=== PATIENT | male | born 1940 | race Caucasian/White ===

== ENCOUNTER → 2021-09-24 | Outpatient (CLI) | payer MEDICARE, SELFPAY ==
[2021-09-24 10:35] LABS: Hematocrit 44.9 % (40-54); Mean Corp Hgb Conc 33.4 g/dL (32-36); Mean Corpuscular Hgb 29.7 pg (27.0-32.0); Mean Corpuscular Volume 88.9 fL (80-94); Mean Platelet Vol. 9.5 fl (6.2-12.0); Platelet Count 285 K/mm3 (150-450); RBC Distribution Width SD 42.6 fl (35.1-43.9); Red Blood Count 5.05 M/mm3 (4.6-6.2)
[2021-09-24 11:32] LABS: Anion Gap 8 (5-15); BUN 18 mg/dL (7-18); BUN/Creat Ratio 15.7 RATIO (10-20); Chloride 100 mmol/L (98-107); Cholesterol 293 mg/dL (200); Creatinine, Serum 1.15 mg/dL (0.70-1.30); EST Glomerular Filtration Rate 65 mL/min (>60); Est Glom Filt Rate - Afr Amer 79 mL/min (>60); Glucose 199 mg/dL (74-106); High Density Lipoprotein 45 mg/dL; Sodium Level 135 mmol/L (136-145); Triglycerides 219 mg/dL; Very Low Density Lipoprotein 44 mg/dL (5-40)
== END | disposition home or self-care (01) ==
PROVIDERS: PCP Family Medicine; Referring Provider Family Medicine; Visit Provider Family Medicine
DX: R73.01 Impaired fasting glucose (principal); T14.8XXA Other injury of unspecified body region, initial encounter; Z13.220 Encounter for screening for lipoid disorders
CPT/HCPCS: 36415; 80048; 80061; 85027

== ENCOUNTER → 2021-11-02 | Outpatient (CLI) | payer MEDICARE, SELFPAY ==
--- NOTE | 2021-11-02 12:00 | TISS_PTH ---
PATIENT: KASSANDRA AKINS LOC: [facility] U#:[id number] AGE/SX: 81/M ROOM: RE11/02/[address]: Dr. Gene Swain MD : [id number] BED: DIS: 11/02/2021 SPEC #: [id number] RECD: 11/02/21 14:55 STATUS: VIJAY CABEZAS #: [id number] MARIA SUBM DR: Gene Swain DEPT: SURGICAL PATHOLOGY RECD BY: Ga Thompson ENTERED: 11/03/21 08:00 SP TYPE: Tissue Bx ANDREW DR: Dr. Nayely Galeas MD Tissues: Skin of upper extremity and shoulder Procedures: Surgery Specimen Level IV HEADER OPERATION: Shave biopsy PRE-OP DIAGNOSIS: ? SCC TISSUE SUBMITTED: Posterior left shoulder MICROSCOPIC DIAGNOSIS Posterior left shoulder lesion, shave biopsy: Seborrheic keratosis. Negative for malignancy. See comment. SJ:aarti 11/04/2021 COMMENT Clinical correlation and appropriate follow up are necessary. MICROSCOPIC DESCRIPTION Slides are reviewed. GROSS DESCRIPTION Received is one container labeled with the patient's name and not further designated. The specimen consists of a piece of blair-brown skin measuring 1.5 x 1.4 cm and up to 0.2 cm in thickness. The specimen is inked, serially sectioned and submitted entirely in one cassette. / APRIL:aarti 11/03/2021 TC:1 CPT: 47793
== END | disposition home or self-care (01) ==
LOC: LABSPEC 15:10
PROVIDERS: PCP Family Medicine; Referring Provider Family Medicine; Visit Provider Family Medicine
DX: M75.82 Other shoulder lesions, left shoulder (principal); L82.1 Other seborrheic keratosis
CPT/HCPCS: 88305

== ENCOUNTER 2021-11-15 10:01 | Emergency (ER) | payer MEDICARE, SELFPAY ==
[2021-11-15 10:02] VITALS: BP 227/112; PULSE 87; RESP 16; TEMP 36.9; O2SAT 96; BMI 34.4
--- NOTE | 2021-11-15 10:26 | EKG12_ITS ---
Test Reason : BLOOD PRESSURE Blood Pressure : / mmHG Vent. Rate : 071 BPM Atrial Rate : 071 BPM P-R Int : 194 ms QRS Dur : 080 ms QT Int : 396 ms P-R-T Axes : 028 -24 043 degrees QTc Int : 430 ms Normal sinus rhythm Minimal voltage criteria for LVH, may be normal variant ( R in aVL ) Borderline ECG Confirmed by TYE CASTAÑEDA, ZACHARY ([id number]), medical transcription editor BILL GALLAGHER ([id number]) on 11/17/2021 9:21:52 AM Referred By: Confirmed By:ZACHARY GAMBLE MD
[2021-11-15 11:00] VITALS: BP 213/110; PULSE 74
[2021-11-15 11:03] LABS: Bacteria 0 SEEN /hpf (None Seen); Mucous, Urine 0 SEEN /hpf (<or=2+); Red Blood Cells-Urine 0 SEEN /hpf (0-5); Squamous Epithelial Cells - UA 0 SEEN /hpf (0-5); White Blood Cells 0 SEEN /hpf (0-5)
[2021-11-15 11:06] LABS: Color, Urine Yellow (Yellow); Glucose, Dipstick Normal (Normal); Ketone-Dipstick Negative (Negative); Leukocyte Esterase-Dipstick Negative /ul (Negative); Nitrite-Dipstick Negative (Negative); Occult Blood-Urine Negative /ul (Negative); Protein-Dipstick Negative (Negative); Urine Bilirubin Dipstick Negative (Negative); Urine Clarity Clear (Clear); Urine Urobilinogen Normal (Normal)
[2021-11-15 11:10] LABS: Anion Gap 6 (5-15); BUN 17 mg/dL (7-18); Chloride 103 mmol/L (98-107); EST Glomerular Filtration Rate 76 mL/min (>60); Est Glom Filt Rate - Afr Amer 92 mL/min (>60); Estimated Creatinine Clearance 53.17 ml/min; Glucose 178 mg/dL (74-106); Potassium 4.1 mmol/L (3.5-5.1); Sodium Level 138 mmol/L (136-145)
--- NOTE | 2021-11-15 11:49 | EX.ED.DYSGE1 ---
HPI History of Present Illness Chief Complaint: Hypertension Detail of Chief Complaint: Elevated blood pressure of 220/160 Informant: patient and family Onset/Context/Timing Onset: - (Unknown. Patient's blood pressure has not been checked recently.) Context: - (Unknown) Timing: - (Unknown) Quality: Patient is asymptomatic Location: Not applicable Current Severity: Moderate Maximum Severity: Moderate Worsened by: Nothing Relieved by: Nothing Associated Symptoms Associated Symptoms: None Narrative Narrative: Patient is an elderly gentleman who was sent from urgent care because of a low blood pressure. He denies headache, visual, ocular auditory symptoms. He specifically denies blurred vision, change in vision or double vision. He denies partial or complete loss of vision. He denies neck pain. He denies chest pain, back pain. He denies respiratory symptoms. He denies nausea or vomiting. He denies decreased urine output. He denies paresthesia, anesthesia or motor weakness. He denies problems with coordination or balance. He denies difficulty with speech or swallowing. He discontinued his blood pressure medicine. Prior similar symptoms: No Recent Illness/Hospitalization: No [facility] Medical History Diabetes Hypertension Home Medications hydrochlorothiazide 25 mg tablet 25 mg PO DAILY 08/11/13 [History Last Taken Unknown] hydrocodone-acetaminophen 5-325mg 5mg-325mg 1 tab PO Q6H PRN PRN Pain ##20 08/11/13 [Rx Last Taken Unknown] lisinopril 20 mg tablet 20 mg PO BID 08/11/13 [History Last Taken Unknown] multivitamin,pn-qwnt-zkmxaewa 27 mg-0.4 mg tablet (Therems-M) 1 tab PO DAILY 08/11/13 [History Last Taken Unknown] lisinopril 10 mg tablet 10 mg PO DAILY #30 tabs 11/15/21 [Rx Last Taken Unknown] Allergy/AdvReac Type Severity Reaction Status Date / Time codeine Allergy Mild Hives Verified 11/15/21 10:06 Surgical History History of tonsillectomy and adenoidectomy Social History (Updated 11/15/21 @ 11:[address] Anthony Chavez MD) household members: none Smoking Status: Never smoker substance use type: does not use ROS ROS ED Constitutional Constitutional ED: Denies chills, fever(s), subjective, sweats or weight loss Eyes Eyes: Denies blurry vision, change in vision or diplopia ENT ENT ED: Denies ear pain, rhinorrhea or sore throat Cardiovascular Cardiovascular: Denies chest pain, orthopnea, palpitations, paroxysmal nocturnal dyspnea or racing heartbeat Respiratory/Chest Respiratory/Chest: Denies cough, dyspnea, dyspnea on exertion, orthopnea or paroxysmal nocturnal dyspnea Gastrointestinal Gastrointestinal: Denies abdominal pain, constipation, diarrhea, melena, nausea or vomiting Genitourinary Genitourinary ED: Denies dysuria, hematuria or urinary frequency Musculoskeletal Musculoskeletal: Denies arthralgias, back pain, myalgias or neck pain Integumentary Denies Abrasions or rash Neurologic Neurologic: Denies headache(s), paresthesias or weakness Endocrine Endocrinology: Denies cold intolerance, heat intolerance, polydipsia, polyphagia or polyuria Hematologic/Lymphatic Hematologic/Lymphatic: Reports systems reviewed and no addt'l complaints, except as documented and none EXAM Physical Exam Const Vital Signs: 11/15/21 10:02 11/15/21 10:06 Temperature 98.4 F Temperature Source Oral Pulse Rate 87 Respiratory Rate 16 Respiratory Pattern Normal Blood Pressure 227/112 H Blood Pressure Mean 150 Pulse Ox 96 Oxygen Delivery Method Room Air Positive well nourished, well developed and obese General Appearance ED: well developed and NAD; Negative for cyanotic, diaphoretic or pallor Nutritional Appearance: obese HEENT Denies moist mucous membranes HEENT Narrative: Head is normocephalic atraumatic. Ears normal. Nares patent. Uvula midline. No deviation or protrusion. There is no erythema or exudate the posterior pharynx Eyes PERRL and EOMs intact bilaterally Eyes Narrative: Unable to see fundi. General Eye ED: Negative for pale conjunctiva or scleral icterus Neck no lymphadenopathy, supple and no JVD Chest Wall inspection of chest normal and palpation of chest normal Resp normal respiratory effort and clear to auscultation bilaterally Cardio regular rate, regular rhythm, S1 normal heart sound, S2 normal heart sound and no murmurs GI normal to inspection, nondistended, normoactive bowel sounds, non-tender, non-distended and no masses; Negative for hepatosplenomegaly Palpation: soft Back/Spine no CVA tenderness Cervical Spine: Negative for cervical spine tenderness Thoracic Spine / Upper Back: Negative for thoracic spinal tenderness Lumbar Spine / Lower Back: Negative for lumbar spinal tenderness Extremity normal to inspection General Extremety ED: Negative for tenderness Neuro oriented x3, CN's II-XII intact bilaterally and no sensory deficits noted Neuro Narrative: Negative Babinski and negative for clonus. Sensorium / Orientation: alert Motor Exam: strength 5/5 throughout Psych mental status grossly normal Skin no rashes or lesions noted and no wounds General Skin Exam: Negative for jaundice or pallor MDM MDM MDM Narrative Medical decision making narrative: Patient with asymptomatic hypertension. Will obtain appropriate blood work to assess for endorgan dysfunction. Suspect this is due to patient discontinuing his antihypertensive medication. Since patient has no evidence of endorgan injury and is asymptomatic we will resume his lisinopril. He was started on 10 mg. He and his family were instructed to contact Dr. Calhoun's office for blood pressure check in 1 week. Lab Data Attestation: I reviewed the patient's lab results. Lab results narrative: Basic metabolic panel is unremarkable. There is no evidence of endorgan dysfunction. His blood sugar is elevated 178. Review of past records indicates that patient does have 2 diabetes. UA is negative for blood and protein there are no casts noted on microscopic exam. Labs: Laboratory Results - last 24 hr 11/15/21 11/15/21 10:45 10:55 Sodium 138 Potassium 4.1 Chloride 103 Carbon Dioxide 29.0 Anion Gap 6 BUN 17 Creatinine 1.00 Estim Creat Clear Calc 53.17 Est GFR (MDRD) Af Amer 92 Est GFR (MDRD) Non-Af 76 BUN/Creatinine Ratio 17.0 Glucose 178 H Calcium 9.0 Urine Color Yellow Urine Clarity Clear Urine pH 7.0 Ur Specific [place] 1.010 Urine Protein Negative Urine Glucose (UA) Normal Urine Ketones Negative Urine Occult Blood Negative Urine Nitrite Negative Urine Bilirubin Negative Urine Urobilinogen Normal Ur Leukocyte Esterase Negative Urine RBC 0 SEEN Urine WBC 0 SEEN Ur Squamous Epith Cells 0 SEEN Urine Bacteria 0 SEEN Urine Mucus 0 SEEN Discharge Plan Triage Chief Complaint: Hypertension ED Provider: Anthony Chavez Dx/Rx/DC Orders Clinical Impression: Asymptomatic hypertensive urgency Instructions: ED Hypertension, Established Prescriptions: New lisinopril 10 mg tablet 10 mg PO DAILY Qty: 30 0RF No Action lisinopril 20 MG tablet 20 mg PO BID hydrochlorothiazide 25 MG tablet 25 mg PO DAILY multivitamin,ux-hydh-vhvwsmon [Therems-M] 1 TABLET tablet 1 tab PO DAILY hydrocodone-acetaminophen 1 TABLET tablet 1 tab PO Q6H PRN PRN (Reason: Pain) Qty: 20 0RF Primary Care Provider: Dariel Swain Referrals: Dariel Swain MD [Primary Care Provider] - 1 Week Activity Restrictions/Additional Instructions: 1. If you develop chest pain that radiates to your back, have strokelike symptoms, become abruptly short of breath called 911 2. Take lisinopril daily as prescribed. 3. Contact Dr. Calhoun's office today to be seen in a week for blood pressure reassessment Disposition Disposition: Home, Self Care
[2021-11-15 12:00] VITALS: BP 217/108; PULSE 69
[2021-11-15 12:23] VITALS: BP 209/102; PULSE 71; RESP 14; O2SAT 96
[2021-11-15] MEDS: Lisinopril 10 MG Tablet PO (12:23)
== END 2021-11-15 12:30 | disposition home or self-care (01) ==
PROVIDERS: Emergency Provider Emergency Medicine; PCP Family Medicine; Visit Provider Emergency Medicine
DX: I16.0 Hypertensive urgency (principal); E11.9 Type 2 diabetes mellitus without complications; I95.9 Hypotension, unspecified; I10 Essential (primary) hypertension
CPT/HCPCS: 80048; 81001; 93005; 99285; A4216

== ENCOUNTER 2021-12-21 13:00 | Outpatient (RCR) | payer MEDICARE, SELFPAY | END 2022-01-12 23:59 | LOC: DC 13:00 | PROVIDERS: PCP Family Medicine; Referring Provider Family Medicine; Visit Provider Family Medicine | DX: E11.9 Type 2 diabetes mellitus without complications (principal) | CPT/HCPCS: 97802; G0108 ==

== ENCOUNTER 2022-01-04 04:37 | Emergency (ER) | payer MEDICARE, SELFPAY ==
[2022-01-04 04:39] VITALS: BP 164/98; PULSE 82; RESP 18; TEMP 36.7; O2SAT 96; BMI 34.4
--- NOTE | 2022-01-04 04:57 | EDS_ITS ---
HPI History of Present Illness Chief Complaint: Cold Sx Informant: patient Narrative Narrative: Patient comes in with nasal congestion drainage and sore throat. This has been going on a little bit for the past week. But it increased on Monday. He thought he might of had a fever at home which is what brought him to the emergency department. He has had problems with sinus infections and has seen ENT in the past. He states he had a little bit of a cough but it is rare and he thinks is just due to the sinus drainage. He is not at all short of breath. He can lay down flat without difficulty. He is not bringing up sputum. No muscle aches. No nausea vomiting. He does not feel systemically ill. He is still eating and drinking and carrying on his normal daily activities. Nothing really makes this better or worse. [facility] Medical History Diabetes Hypertension Home Medications hydrochlorothiazide 25 mg tablet 25 mg PO DAILY 08/11/13 [History Last Taken Unknown] hydrocodone-acetaminophen 5-325mg 5mg-325mg 1 tab PO Q6H PRN PRN Pain ##20 08/11/13 [Rx Last Taken Unknown] lisinopril 20 mg tablet 20 mg PO BID 08/11/13 [History Last Taken Unknown] multivitamin,bq-iqqq-uslmlttb 27 mg-0.4 mg tablet (Therems-M) 1 tab PO DAILY 08/11/13 [History Last Taken Unknown] lisinopril 10 mg tablet 10 mg PO DAILY #30 tabs 11/15/21 [Rx Last Taken Unknown] amoxicillin 500 mg capsule 500 mg PO TID #30 caps 01/04/22 [Rx Last Taken Unknown] Allergy/AdvReac Type Severity Reaction Status Date / Time codeine Allergy Mild Hives Verified 11/15/21 10:06 Surgical History History of tonsillectomy and adenoidectomy Social History household members: none Smoking Status: Never smoker substance use type: does not use ROS ROS ED Constitutional Constitutional ED: Reports chills and subjective Eyes Eyes: Denies blurry vision, change in vision or diplopia ENT ENT ED: Reports rhinorrhea, sore throat and other Details: See history of present illness. ; Denies ear pain Cardiovascular Cardiovascular: Denies chest pain, palpitations or racing heartbeat Respiratory/Chest Respiratory/Chest: Reports cough; Denies dyspnea or dyspnea on exertion Gastrointestinal Gastrointestinal: Denies abdominal pain, nausea or vomiting Genitourinary Genitourinary ED: Denies dysuria Musculoskeletal Musculoskeletal: Denies arthralgias or myalgias Integumentary Denies rash Neurologic Neurologic: Denies headache(s) Endocrine Endocrinology: Denies polydipsia or polyuria Hematologic/Lymphatic Hematologic/Lymphatic: Denies easy bleeding or easy bruising Allergic/Immunologic Allergic/Immunologic ED: Denies urticaria EXAM Physical Exam Const Vital Signs: 01/04/22 04:39 01/04/22 04:39 Temperature 98.1 F Temperature Source Oral Pulse Rate 82 Respiratory Rate 18 Respiratory Effort Normal Respiratory Pattern Normal Blood Pressure 164/98 H Blood Pressure Mean 120 Pulse Ox 96 Oxygen Delivery Method Room Air Positive well nourished and well developed Constitutional Narrative: Patient looks nontoxic. He walked back from triage without any difficulties. He is not at all dyspneic. General Appearance ED: well developed and NAD; Negative for pallor HEENT Reports moist mucous membranes HEENT Narrative: Patient does have a little bit of tenderness to the right frontal and mild to the right maxillary area. No temporal artery tenderness. No left-sided tenderness. He does have some nasal discharge slightly more on the right than the left. It is not grossly purulent though. No bleeding. Posterior pharynx shows some minimal erythema but no exudate swelling or asymmetry. His voice is normal. Eyes EOMs intact bilaterally Neck supple Chest Wall inspection of chest normal Resp normal respiratory effort and clear to auscultation bilaterally Resp Narrative: Patient takes good deep breaths without any pain. His lungs are completely cl ear. No coughing while I am in the room. No wheezes rales or rhonchi Auscultation: Negative for rales, rhonchi or wheezes Cardio regular rate and regular rhythm GI normal to inspection, nondistended, normoactive bowel sounds and non-tender Back/Spine no CVA tenderness Extremity General Extremety ED: Negative for tenderness Neuro oriented x3 Psych mental status grossly normal Skin no rashes or lesions noted General Skin Exam: Negative for jaundice or pallor MDM MDM MDM Narrative Medical decision making narrative: This patient has a long history of sinus issues. He states its uncommon when he gets a sinus infection but he has had several before. This is similar. He is approaching about a week of congestion and drainage from his nose. What brought him in now was concerned of possible fever at home. Were not seeing a fever here. He has a rare dry cough that is probably postnasal drip. His chest x-ray is looked at by me and read by radiology as clear. With the reported fever, drainage, isolated facial tenderness and pain I will treat this as a case of sinusitis. There is no real significant pulmonary's symptom other than a rare dry cough. There is no infiltrate or change on chest x-ray. No fever. No hypoxia. COVID is negative. Patient has had prior sinus infections. He has drainage tenderness and reported fever at home. Radiography Diagnostic Testing: Clinical Impression(s) from Imaging Studies Chest X-Ray 01/04/22 04:57 IMPRESSION: No acute cardiopulmonary disease. Moderate hiatal hernia. Electronically Signed: Toño Haywood MD at 6:03 EST , Chest x-ray looked at by me and read by radiology shows no acute process. Discharge Plan Triage Chief Complaint: Cold Sx ED Provider: Crow Foreman Dx/Rx/DC Orders Clinical Impression: Sinusitis, acute Instructions: ED Sinusitis (Antibiotic Treatment) Prescriptions: New amoxicillin 500 mg capsule 500 mg PO TID Qty: 30 0RF No Action lisinopril 20 MG tablet 20 mg PO BID hydrochlorothiazide 25 MG tablet 25 mg PO DAILY multivitamin,lu-ekdr-mbgyxeqx [Therems-M] 1 TABLET tablet 1 tab PO DAILY hydrocodone-acetaminophen 1 TABLET tablet 1 tab PO Q6H PRN PRN (Reason: Pain) Qty: 20 0RF lisinopril 10 mg tablet 10 mg PO DAILY Qty: 30 0RF Primary Care Provider: Dariel Swain Referrals: Dariel Swain MD [Primary Care Provider] - 1 Week if not improving Disposition Disposition: Home, Self Care
--- NOTE | 2022-01-04 04:57 | RAD_ITS ---
INDICATION: cough EXAMINATION/TECHNIQUE: X-RAY - XR Chest 2 Views COMPARISON: 08/11/2013 FINDINGS: LINES/DEVICES: None. LUNGS: No consolidation, edema or effusion. No pneumothorax. MEDIASTINUM AND CARDIOVASCULAR STRUCTURES: Atherosclerotic calcifications. Moderate hiatal hernia with air-fluid level. BONES AND SOFT TISSUES: Unremarkable. RAD/Chest PA and Lateral IMPRESSION: No acute cardiopulmonary disease. Moderate hiatal hernia. Electronically Signed: Toño Haywood MD at 6:03 EST ,
== END 2022-01-04 06:29 | disposition home or self-care (01) ==
PROVIDERS: Emergency Provider Emergency Medicine; PCP Family Medicine; Visit Provider Emergency Medicine
DX: J01.90 Acute sinusitis, unspecified (principal); E11.9 Type 2 diabetes mellitus without complications; J02.9 Acute pharyngitis, unspecified; I10 Essential (primary) hypertension
CPT/HCPCS: 71046; 87811; 99282

== ENCOUNTER → 2022-03-24 | Outpatient (CLI) | payer MEDICARE, SELFPAY ==
[2022-03-24 11:20] LABS: Anion Gap 8 (5-15); BUN 19 mg/dL (7-18); BUN/Creat Ratio 17.4 RATIO (10-20); Calcium,Total 9.5 mg/dL (8.5-10.1); Chloride 100 mmol/L (98-107); Cholesterol 320 mg/dL (200); Creatinine, Serum 1.09 mg/dL (0.70-1.30); EST Glomerular Filtration Rate 69 mL/min (>60); Est Glom Filt Rate - Afr Amer 84 mL/min (>60); Glucose 150 mg/dL (74-106); High Density Lipoprotein 55 mg/dL; Potassium 4.3 mmol/L (3.5-5.1); Sodium Level 136 mmol/L (136-145); Triglycerides 181 mg/dL; Very Low Density Lipoprotein 36 mg/dL (5-40)
== END | disposition home or self-care (01) ==
LOC: MTLAB 08:08
PROVIDERS: PCP Family Medicine; Referring Provider Family Medicine; Visit Provider Family Medicine
DX: I10 Essential (primary) hypertension (principal); E78.5 Hyperlipidemia, unspecified
CPT/HCPCS: 36415; 80048; 80061

== ENCOUNTER → 2022-06-20 | Outpatient (CLI) | payer MEDICARE, SELFPAY ==
[2022-06-20 10:36] LABS: ALB/GLOB Ratio 1.2 RATIO (0.9-2.4); AST(SGOT) 22 U/L (15-37); Alanine Aminotransfer ALT/SGPT 23 U/L (16-61); Albumin, Serum 4.1 g/dL (3.2-5.0); Alkaline Phosphatase 67 U/L (45-117); Anion Gap 6 (5-15); BUN 21 mg/dL (7-18); BUN/Creat Ratio 19.8 RATIO (10-20); Calcium,Total 9.2 mg/dL (8.5-10.1); Chloride 101 mmol/L (98-107); Cholesterol 165 mg/dL (200); Creatinine, Serum 1.06 mg/dL (0.70-1.30); EST Glomerular Filtration Rate 71 mL/min (>60); Est Glom Filt Rate - Afr Amer 86 mL/min (>60); Globulin 3.5 g/dL (2.2-4.2); Glucose 159 mg/dL (74-106); High Density Lipoprotein 46 mg/dL; Potassium 4.1 mmol/L (3.5-5.1); Protein, Total 7.6 g/dL (6.4-8.2); Sodium Level 139 mmol/L (136-145); Triglycerides 271 mg/dL; Very Low Density Lipoprotein 54 mg/dL (5-40)
== END | disposition home or self-care (01) ==
LOC: MTLAB 07:44
PROVIDERS: PCP Family Medicine; Referring Provider Family Medicine; Visit Provider Family Medicine
DX: E11.9 Type 2 diabetes mellitus without complications (principal); E78.5 Hyperlipidemia, unspecified
CPT/HCPCS: 36415; 80053; 80061

== ENCOUNTER → 2023-05-08 | Outpatient (CLI) | payer MEDICARE, SELFPAY ==
[2023-05-08 16:33] LABS: Anion Gap 8 (5-15); BUN 19 mg/dL (7-18); BUN/Creat Ratio 18.1 RATIO (10-20); Calcium,Total 9.2 mg/dL (8.5-10.1); Chloride 104 mmol/L (98-107); Cholesterol 257 mg/dL (200); Creatinine, Serum 1.05 mg/dL (0.70-1.30); EST Glomerular Filtration Rate 72 mL/min (>60); Est Glom Filt Rate - Afr Amer 87 mL/min (>60); Glucose 150 mg/dL (74-106); High Density Lipoprotein 47 mg/dL; Potassium 3.6 mmol/L (3.5-5.1); Sodium Level 137 mmol/L (136-145); Triglycerides 178 mg/dL; Very Low Density Lipoprotein 36 mg/dL (5-40)
== END | disposition home or self-care (01) ==
LOC: MFPLAB 13:53
PROVIDERS: PCP Family Medicine; Visit Provider Family Medicine
DX: E11.65 Type 2 diabetes mellitus with hyperglycemia (principal)
CPT/HCPCS: 36415; 80048; 80061; 84443

== ENCOUNTER → 2023-08-07 | Outpatient (CLI) | payer MEDICARE, SELFPAY | END | disposition home or self-care (01) | LOC: MFPLAB 13:48 | PROVIDERS: PCP Family Medicine; Visit Provider Family Medicine | DX: E03.9 Hypothyroidism, unspecified (principal); E78.5 Hyperlipidemia, unspecified | CPT/HCPCS: 36415; 80061; 84439; 84443 ==

== ENCOUNTER → 2023-08-14 | Outpatient (CLI) | payer MEDICARE, SELFPAY ==
[2023-08-14 15:42] LABS: Cholesterol 159 mg/dL (200); High Density Lipoprotein 42 mg/dL; T4 Free Direct 0.86 ng/dL (0.76-1.46); Triglycerides 180 mg/dL; Very Low Density Lipoprotein 36 mg/dL (5-40)
== END | disposition home or self-care (01) ==
LOC: MFPLAB 11:18
PROVIDERS: PCP Family Medicine; Visit Provider Family Medicine
DX: E78.5 Hyperlipidemia, unspecified (principal); E03.9 Hypothyroidism, unspecified
CPT/HCPCS: 80061; 84439; 84443

== ENCOUNTER 2023-09-06 19:12 | Inpatient (IN) | payer MEDICARE, SELFPAY ==
[2023-09-06 19:14] VITALS: BP 145/84; PULSE 96; RESP 22; TEMP 36.1; O2SAT 97; BMI 34.7
--- NOTE | 2023-09-06 19:25 | EKG12_ITS ---
Test Reason : REPEAT Blood Pressure : / mmHG Vent. Rate : 091 BPM Atrial Rate : 091 BPM P-R Int : 148 ms QRS Dur : 078 ms QT Int : 388 ms P-R-T Axes : 000 -23 025 degrees QTc Int : 477 ms Normal sinus rhythm ST & T wave abnormality, consider anterior ischemia Prolonged QT Abnormal ECG Confirmed by VALE CASTAÑEDA, GEORGE ([id number]), editor managing director JOHNNY MCWILLIAMS ([id number]) on 09/12/2023 1:39:40 PM Referred By: Confirmed By:MEGAN COLLAZO MD
--- NOTE | 2023-09-06 19:39 | ED.VIS.CHEST ---
HPI History of Present Illness Chief Complaint: Chest Pain Informant: patient Onset/Context/Timing Onset: Today Activity at onset: sudden Timing: Continuous Quality: Positive for Pain Location: Substernal Current Severity: Moderate Maximum Severity: Severe Worsened By: Nothing Relieved By: Nothing Associated Symptoms: Negative for Nausea, Vomiting, Diaphoresis, Dyspnea, Cough, Fever, Lightheadedness, Acid Reflux or Palpitations Narrative Narrative: 83-year-old male history diabetes and hypertension. Was driving his car had sudden onset of chest pain 20 to 30 minutes ago. States is midsternal and goes to both arms. He had chest pain before not to this intensity. He has never had a heart cath. Has never been diagnosed with cardiac disease. He has no stents nor is he ever had bypass. He has never had a DVT or PE risk factors. Says he has had recent exertional dyspnea not so much exertional chest pain. He denies any nausea shortness of breath nor any diaphoresis currently. Prior Similar Symptoms: Yes Recent Illness/Hospitalization: No CVD Risk Factors: Positive for Hypertension and Diabetes; Negative for Smoking PE Risk Factors: Negative for Recent Travel/Surgery, Recent Immobilization, Prior DVT or PE, Cancer or OCP + Smoking + >/=35 TAD Risk Factors: Negative for Marfan's Syndrome [facility] Medical History (Updated 09/06/23 @ 20:[address] Abhinav May MD) Actinic keratosis Hyperlipidemia Hypothyroidism Diabetes Hypertension Home Medications ?Medication ?Instructions ?Recorded ?Last Taken ?Type amlodipine 10 mg tablet 10 mg PO DAILY 09/06/23 Unknown History furosemide 20 mg tablet 20 mg PO DAILY 09/06/23 Unknown History glimepiride 2 mg tablet 2 mg PO DAILY 09/06/23 Unknown History levothyroxine 75 mcg tablet 75 mcg PO DAILY 09/06/23 Unknown History lisinopril 40 mg tablet 40 mg PO DAILY 09/06/23 Unknown History meloxicam 7.5 mg tablet 7.5 mg PO DAILY 09/06/23 Unknown History pravastatin 20 mg tablet 20 mg PO DAILY 09/06/23 Unknown History Allergy/AdvReac Type Severity Reaction Status Date / Time codeine Allergy Mild Hives Verified 09/06/23 19:16 Surgical History (Updated 09/06/23 @ 20:03 by Anushka Uriostegui) History of amputation of finger History of tonsillectomy and adenoidectomy Social History household members: none Smoking Status: Never smoker substance use type: does not use ROS ROS ED ROS Narrative Chest pain. No recent illness. Exertional dyspnea over the last several weeks to months. Constitutional Constitutional ED: Denies chills or fever(s) Eyes Eyes: Reports none ENT ENT ED: Denies ear pain Cardiovascular Cardiovascular: Reports as per HPI and chest pain Respiratory/Chest Respiratory/Chest: Reports dyspnea on exertion; Denies cough Gastrointestinal Gastrointestinal: Denies abdominal pain, diarrhea, nausea or vomiting Genitourinary Genitourinary ED: Denies dysuria or hematuria Musculoskeletal Musculoskeletal: Denies arthralgias or back pain Integumentary Denies abscess Neurologic Neurologic: Denies headache(s) Psychiatric Psychiatric: Denies anxiety Endocrine Endocrinology: Denies cold intolerance Hematologic/Lymphatic Hematologic/Lymphatic: Denies easy bleeding, easy bruising or lymphadenopathy Allergic/Immunologic Allergic/Immunologic ED: Denies mouth swelling, tongue swelling or urticaria EXAM Physical Exam Narrative Exam Narrative: 81-year-old male vital signs are stable he is tachycardic at about 115. Sitting upright in bed. No family present. H EENT exam unremarkable. Neck nontender. Lungs clear to auscultation bilaterally. Heart tachycardic rate about 115 no murmur. Is complaining of chest discomfort but is not reproducible. Abdomen is soft and nontender. No peritoneal signs. Moving all 4 extremities. 5 out of 5 electric range preparer strength. Equal and symmetrical radial pulses. He does have 1+ pitting edema both lower extremities which she states has been chronic. Dorsi and plantarflexion intact. He is awake and alert. He is answering questions following commands. Const Vital Signs: 09/06/23 19:14 09/06/23 19:25 09/06/23 19:35 Temperature 96.9 F L Temperature Source Temporal Pulse Rate 96 Respiratory Rate 22 H Respiratory Effort Normal Blood Pressure 145/84 H Blood Pressure Mean 104 Pulse Ox 97 Oxygen Delivery Method Room Air Room Air 09/06/23 20:12 09/06/23 20:23 Temperature Temperature Source Pulse Rate 79 87 Respiratory Rate 17 Respiratory Effort Blood Pressure 151/81 H 151/81 H Blood Pressure Mean 104 Pulse Ox 93 Oxygen Delivery Method Room Air Positive well nourished and well developed; Negative for cachectic, contractures or unkempt General Appearance ED: well developed and NAD; Negative for unkempt, cachectic, contractures or pallor Nutritional Appearance: Negative for cachectic HEENT Reports moist mucous membranes normocephalic and atraumatic; Negative for trauma or tenderness Eyes PERRL and EOMs intact bilaterally General Eye ED: Negative for pale conjunctiva Neck no lymphadenopathy, supple and no JVD General: Negative for tenderness Chest Wall inspection of chest normal and palpation of chest normal Resp normal respiratory effort and clear to auscultation bilaterally Cardio regular rhythm, S1 normal heart sound, S2 normal heart sound and no murmurs; Negative for regular rate Rate: tachycardic Peripheral Pulses: pulses 2+ throughout GI normal to inspection, nondistended, normoactive bowel sounds, soft to palpation, non-tender, non-distended and no masses Back/Spine no CVA tenderness and no thoracic nor lumbar tenderness Extremity Negative for normal to inspection Extremity Narrative: 1+ pitting edema bilaterally. Calves are nontender. No cords. General Extremety ED: Yes edema; Negative for pulses abnormal or tenderness General Extremity: edema; Negative for pulses abnormal Neuro oriented x3 Sensorium / Orientation: awake, alert, oriented to person, oriented to place and oriented to time; Negative for confused, lethargic or stuporous Motor Exam: strength 5/5 throughout Psych mental status grossly normal Appearance: Negative for unkempt Attitude: No agitated Mood & Affect: Negative for depressed, anxious or tearful Skin no rashes or lesions noted and no wounds General Skin Exam: Negative for jaundice or pallor Rashes: No rashes noted Trauma: Negative for abrasion or laceration Heart Score History: Highly Suspicious ECG: Significant ST-Depression Age: >/= 65 years Risk Factors: >/= 3 Risk Factors or History of CAD Troponin: </= Normal Limit Score: 8 MDM MDM MDM Narrative Medical decision making narrative: 83-year-old male diabetic hypertensive with very concerning midsternal chest pain. EKG shows a sinus tachycardia [address] depression. Concerning for posterior NE. Patient will undergo cardiac protocol. He is receiving p.o. aspirin. Osmany spoken to the cushion maker on-call for interventional cardiology, Dr. Chaudhary, he reviewed the patient's EKG. We will give the patient heparin and Brilinta. Beta-eb to slow his heart rate and get a repeat EKG. Multiple repeat exams the last 1 about 8:35 PM patient feels better. He was given metoprolol with heart rates in the 80s. His chest pain went from a 6 out of 10 no basically it to. He also has Nitropaste on. Currently sitting upright feeling improved. Is repeat EKG was a heart rate of 91 and left much improved from the first. There is still some ST depression in V3 through V6. No ST elevation. I have the hospitalist on page for admission. History & Record Review Discussion w/independent historian: Patient Additional record(s) reviewed:: Prior inpatient record, Prior outpatient record, Prior ED visit and Prior labs Lab Data Attestation: I reviewed the patient's lab results. Lab results narrative: CBC normal. White count of 10. H&H 15 and 46. Platelets 350. Electrolytes unremarkable gap 9. Normal BUN and creatinine. Glucose 223. Initial troponin 9. Labs: Laboratory Results - last 24 hr 09/06/23 19:34 WBC 10.7 RBC 5.58 Hgb 15.0 Hct 46.2 MCV 82.8 MCH 26.9 L MCHC 32.5 RDW Std Deviation 40.7 RDW Coeff of Asya 13.7 Plt Count 350 MPV 9.3 Immature Gran % (Auto) 0.600 Neut % (Auto) 44.2 L Lymph % (Auto) 43.2 H Tama % (Auto) 9.1 Eos % (Auto) 2.0 Baso % (Auto) 0.9 Absolute Neuts (auto) 4.8 Absolute Lymphs (auto) 4.63 H Nucleated RBC % 0 Sodium 138 Potassium 4.0 Chloride 105 Carbon Dioxide 24.0 Anion Gap 9 BUN 17 Creatinine 1.19 Estim Creat Clear Calc 52.34 Est GFR (MDRD) Af Amer 75 Est GFR (MDRD) Non-Af 62 BUN/Creatinine Ratio 14.3 Glucose 223 H Calcium 9.7 Troponin I High Sens 9 Radiography Chest X-Ray - ED: Read by ED Physician, Read by Radiologist, Heart, Lungs, Mediastinum, Bony Structures, No Acute Disease and Chronic Changes Diagnostic Testing: Clinical Impression(s) from Imaging Studies Chest X-Ray 09/06/23 19:43 IMPRESSION: No radiographic evidence of acute cardiopulmonary disease. Electronically Signed: Keith Browne MD at 20:31 EDT , Chest x-ray, portable, single view interpreted by myself and the radiologist shows no acute abnormality. Normal cardiac silhouette. Normal mediastinum. Normal lung delatorre. Chronic changes. Rhythm Strip Rhythm Strip: Sinus Tach Rate: 123 Ectopy: None EKG Initial EKG: Attestation: I personally reviewed and interpreted this EKG as follows: Interpretation: Sinus Tachycardia Comments: Sinus tachycardia heart rate 123. ST depression in lead II through V5. Also in evaluation no one in aVL. Follow-up EKG: Attestation: I personally reviewed and interpreted this EKG as follows: Interpretation: Sinus Rhythm and S-T Depression Comments: Repeat EKG after metoprolol. Heart rate of 91. There is still some mild ST depression in V3 through V6. Clinically the patient looks much better his pain is resolving but not gone. Critical Care Time Critical Care Time: Yes Critical care time (excluding procedures): 30-74 minutes, Including time spent:, Discussing w/Patient &/or Family/Plant General Manager, Discussing w/Consultants, Arranging Admission or Transfer, Performing Direct Patient Care at Bedside and - (35 minutes) Discharge Plan Dx/Rx/DC Orders Clinical Impression: Acute chest pain, History of diabetes mellitus, History of hypertension, Abnormal ECG Disposition Disposition: [facility]
[2023-09-06] MEDS: TICAGRELOR 90 MG TABLET 180 MG PO (19:41)
[2023-09-06] MEDS: Heparin Injection (Vial) 5,000 UNIT/ML VIAL 5000 UNIT IV (19:42)
--- NOTE | 2023-09-06 19:43 | RAD_ITS ---
INDICATION: chest pain EXAMINATION/TECHNIQUE: X-RAY - portable upright AP chest x-ray COMPARISON: 01/04/2022 FINDINGS: LINES/DEVICES: None. LUNGS: No consolidation, edema or effusion. No pneumothorax. MEDIASTINUM AND CARDIOVASCULAR STRUCTURES: Cardiac silhouette stable within normal limits. Retrocardiac hiatal hernia redemonstrated. BONES AND SOFT TISSUES: No acute changes. RAD/Chest 1 View (Portable) IMPRESSION: No radiographic evidence of acute cardiopulmonary disease. Electronically Signed: Keith Browne MD at 20:31 EDT ,
[2023-09-06] MEDS: Aspirin 81 MG TAB.CHEW 325 MG PO (19:47)
[2023-09-06] MEDS: Metoprolol Tartrate 5 MG/5 ML Vial IV (19:51)
[2023-09-06] MEDS: Aspirin 81 MG TAB.CHEW 324 MG PO (19:52)
--- NOTE | 2023-09-06 20:07 | EKG12_ITS ---
Test Reason : CP ADMIT Blood Pressure : / mmHG Vent. Rate : 073 BPM Atrial Rate : 073 BPM P-R Int : 222 ms QRS Dur : 090 ms QT Int : 418 ms P-R-T Axes : 031 -18 016 degrees QTc Int : 460 ms Sinus rhythm with 1st degree A-V block Nonspecific T wave abnormality Prolonged QT Abnormal ECG When compared with ECG of 06-SEP-2023 20:00, MANUAL COMPARISON REQUIRED, DATA IS UNCONFIRMED Confirmed by MARK CASTAÑEDA, DAVID ([id number]), video editor BILL GALLAGHER ([id number]) on 09/07/2023 2:33:07 PM Referred By: SILKE Confirmed By:DAVID FLORES MD
[2023-09-06 20:08] LABS: Absolute Lymphocyte Count 4.63 X10^3/uL (0.83-4.51); Absolute Neutrophil Count 4.8 X10^3/uL (2.0-7.7); Basophil% 0.9 % (0-1); Eosinophil# 0.21 X10^3/uL; Hematocrit 46.2 % (40-54); Lymphocyte # 4.63 X10^3/ul (0.83-4.51); Lymphocyte % 43.2 % (19-41); Mean Corp Hgb Conc 32.5 g/dL (32-36); Mean Corpuscular Hgb 26.9 pg (27.0-32.0); Mean Corpuscular Volume 82.8 fL (80-94); Mean Platelet Vol. 9.3 fl (6.2-12.0); Monocyte# 0.98 X10^3/uL; Monocyte% 9.1 % (0-10); NRBC Flagged by Analyzer 0 % (0-5); Neutrophil # 4.75 X10^3/uL (2.7-7.7); Neutrophil % 44.2 % (47-70); Platelet Count 350 K/mm3 (150-450); RBC Distribution Width CV 13.7 % (11.6-14.6); RBC Distribution Width SD 40.7 fl (35.1-43.9); Red Blood Count 5.58 M/mm3 (4.6-6.2); White Blood Count 10.7 K/mm3 (4.4-11.0)
[2023-09-06 20:12] VITALS: BP 151/81; PULSE 79; RESP 17; O2SAT 93
[2023-09-06 20:22] LABS: Anion Gap 9 (5-15); BUN 17 mg/dL (7-18); BUN/Creat Ratio 14.3 RATIO (10-20); Calcium,Total 9.7 mg/dL (8.5-10.1); Chloride 105 mmol/L (98-107); Creatinine, Serum 1.19 mg/dL (0.70-1.30); EST Glomerular Filtration Rate 62 mL/min (>60); Est Glom Filt Rate - Afr Amer 75 mL/min (>60); Estimated Creatinine Clearance 52.34 ml/min; Glucose 223 mg/dL (74-106); Sodium Level 138 mmol/L (136-145); Troponin-I HS (w/2H Reflex) 9 pg/mL (3.0-78.0)
[2023-09-06 20:23] VITALS: BP 151/81; PULSE 87
[2023-09-06] MEDS: Nitroglycerin Oint 1 INCH PACKET TD (20:23)
[2023-09-06 20:45] VITALS: BP 139/79; PULSE 78; RESP 16; TEMP 36.1; O2SAT 93
--- NOTE | 2023-09-06 20:54 | HP.PCM.HOS_ITS ---
HPI - General General Date of Admission: 09/06/23 Date of Service: 09/06/23 Chief Complaint: Chest pain HPI Narrative KASSANDRA AKINS, is a 83 M who presented to [facility] ED on 09/06/2023 with chest pain. Saw patient at bedside in the ED, 2 sons also present. Patient was sitting up comfortably in bed, conversing normally, in no acute distress. Patient states he developed sudden onset chest pain while driving his car about 20 to 30 minutes prior to arrival to the ED. Pain was midsternal and radiated to both arms. Has had chest pain before but never with this intensity. Has history of hypertension, cholesterol and diabetes but no specific heart history. No history of DVT or PE. On arrival to the ED, ED physician noted that patient was in fairly significant pain and looked unwell. Initial EKG showed diffuse ST depressions in precordial leads. Initial troponin was normal. Was discussed with on-call cardiology who recommended patient be treated for NSTEMI. Patient was given heparin bolus, full dose aspirin, Brilinta and a dose of nitroglycerin. Had significant improvement in pain and discomfort after the nitro. EKG showed sinus tachycardia but patient was given a dose of IV Lopressor to see if he had any improvement with this. Did have improvement in heart rate down to the 90s, and repeat EKG after all these interventions showed improvement in ST depressions. On my encounter, patient states that his chest pain has essentially resolved. Denies any shortness of breath or any other symptoms currently. No other acute concerns at this time. Vitals in ED notable for sinus tachycardia and mild hypertension, otherwise unremarkable. Labs notable for glucose 223, otherwise unremarkable. Chest x- ray was unremarkable. EKG as noted above. [facility] Medical History (Updated 09/07/23 @ 03:[address] Isaac Leon, DO) Actinic keratosis Hyperlipidemia Hypothyroidism Diabetes Hypertension Home Medications ?Medication ?Instructions ?Recorded ?Last Taken ?Type amlodipine 10 mg tablet 10 mg PO DAILY 09/06/23 Unknown History furosemide 20 mg tablet 20 mg PO DAILY 09/06/23 Unknown History glimepiride 2 mg tablet 2 mg PO DAILY 09/06/23 Unknown History levothyroxine 75 mcg tablet 75 mcg PO DAILY 09/06/23 Unknown History lisinopril 40 mg tablet 40 mg PO DAILY 09/06/23 Unknown History meloxicam 7.5 mg tablet 7.5 mg PO DAILY 09/06/23 Unknown History pravastatin 20 mg tablet 20 mg PO DAILY 09/06/23 Unknown History Allergy/AdvReac Type Severity Reaction Status Date / Time codeine Allergy Mild Hives Verified 09/06/23 19:16 Surgical History (Updated 09/06/23 @ 20:03 by Anushka Uriostegui) History of amputation of finger History of tonsillectomy and adenoidectomy Social History household members: none Smoking Status: Never smoker substance use type: does not use ROS Constitutional Constitutional: Denies chills, fatigue, fever(s) or weakness Eyes Eyes: Denies change in vision Cardiovascular Cardiovascular: Reports chest pain; Denies dyspnea on exertion, edema, lightheadedness, palpitations, rapid heart rate or syncope Respiratory/Chest Respiratory/Chest: Denies cough, shortness of breath at rest or wheezing Gastrointestinal Gastrointestinal: Denies abdominal pain, constipation, diarrhea, nausea or vomiting Neurologic Neurologic: Denies dizziness, focal weakness or headache(s) Vital Signs Vital Signs Vital Signs: 09/06/23 19:14 09/06/23 19:25 09/06/23 19:35 Temperature 96.9 F L Temperature Source Temporal Pulse Rate 96 Respiratory Rate 22 H Respiratory Effort Normal Blood Pressure 145/84 H Blood Pressure Mean 104 Pulse Ox 97 Oxygen Delivery Method Room Air Room Air 09/06/23 20:12 09/06/23 20:23 09/06/23 20:45 Temperature 97 F L Temperature Source Pulse Rate 79 87 78 Respiratory Rate 17 16 Respiratory Effort Blood Pressure 151/81 H 151/81 H 139/79 H Blood Pressure Mean 104 99 Pulse Ox 93 93 Oxygen Delivery Method Room Air Weight Weight: 97.6 kg Body Mass Index (BMI) 34.7 Physical Exam Const alert, oriented x3 and no apparent distress Constitutional Narrative: Pleasant elderly male, obese, sitting up comfortably in bed, conversing normally, no acute distress. General Appearance: cooperative and comfortable HEENT normocephalic, head/scalp atraumatic, hearing grossly normal bilaterally, nasal mucous membranes and turbinates normal and moist oral mucous membranes Eyes PERRL, EOMs intact bilaterally and conjunctivae normal Neck full ROM Chest inspection of chest normal Resp normal respiratory effort, normal air movement, no use of accessory muscles and clear to auscultation bilaterally Cardio regular rate, regular rhythm, no murmurs and peripheral pulses 2+ throughout GI normal to inspection, nondistended, normoactive bowel sounds, soft to palpation, non-tender and non-distended Back/Spine normal ROM Extremity normal to inspection, full ROM and no pedal edema Skin no rashes or lesions noted Neuro moves all extremities and no focal motor deficits Speech: speech normal Psych mental status grossly normal Results Lab / Micro Data 09/06/23 19:34 09/06/23 19:34 Labs: Laboratory Results - last 24 hr 09/06/23 19:34: WBC 10.7, RBC 5.58, Hgb 15.0, Hct 46.2, MCV 82.8, MCH 26.9 L, MCHC 32.5, RDW Std Deviation 40.7, RDW Coeff of Asya 13.7, Plt Count 350, MPV 9.3, Immature Gran % (Auto) 0.600, Neut % (Auto) 44.2 L, Lymph % (Auto) 43.2 H, Phelps % (Auto) 9.1, Eos % (Auto) 2.0, Baso % (Auto) 0.9, Absolute Neuts (auto) 4.8, Absolute Lymphs (auto) 4.63 H, Nucleated RBC % 0, Sodium 138, Potassium 4.0, Chloride 105, Carbon Dioxide 24.0, Anion Gap 9, BUN 17, Creatinine 1.19, Estim Creat Clear Calc 52.34, Est GFR (MDRD) Af Amer 75, Est GFR (MDRD) Non-Af 62, BUN/Creatinine Ratio 14.3, Glucose 223 H, Calcium 9.7, Troponin I High Sens 9 Rhythm Strip Rhythm Strip: Sinus Tach Rate: 123 Ectopy: None Imaging Radiology Impression Chest X-Ray 09/06/23 19:43 IMPRESSION: No radiographic evidence of acute cardiopulmonary disease. Electronically Signed: Keith Browne MD at 20:31 EDT , Assessment & Plan Assessment/Plan (1) NSTEMI, initial episode of care: PLAN: Plan Patient is an 83-year-old male who presented [facility] ED on 09/06/2023 with chest pain. 1. NSTEMI ? Admit under inpatient status to PCU. Cardiology consulted. Strongly suspect type I NSTEMI given typical chest pain that improved with nitro and known risk factors. Troponin trend 9 > 3832 > 72062. Was given doses of aspirin, Brilinta and heparin bolus in ED. Continue heparin drip. N.p.o. status with plan for left heart cath tomorrow. Echo ordered. A1c 7.1%. Lipid panel and TSH ordered. Holding home amlodipine, Lasix and lisinopril for now. Will start low-dose Coreg. Will also change home pravastatin to high intensity atorvastatin. Appreciate further cardiology recommendations. Chronic medical conditions: ? Obesity: BMI 33 on admit. Complicates hospital course, care and prognosis. ? Type 2 diabetes mellitus with hyperglycemia: Home regimen of only glimepiride 2 mg daily. Blood glucose 233 on admit. A1c 7.1%. Will start sliding scale insulin with meals for now, adjust as needed. ? Hypothyroidism: Was previously poorly controlled with TSH 41 in April. Synthroid dose was increased from 50 to 75 mcg daily with improvement in TSH to 10 on 08/13. Repeat TSH ordered. Continue home Synthroid. ? Hypertension: Holding home amlodipine, Lasix and lisinopril for now as above and started low-dose Coreg. Further management as above. ? Hyperlipidemia: Recent lipid panel on 08/13 showed total cholesterol 159, LDL 81, HDL 42; much improved from lipid panel in April. Started high-intensity atorvastatin in place of home pravastatin as noted above. Repeat lipid panel ordered. DVT prophylaxis: Not indicated, on heparin drip CODE STATUS: Full code, verified Expected disposition: Home, 2 to 3 days Total clinical time spent by myself addressing the patient's medical issues, reviewing all the data, and collaborating with patient's care team: 55 minutes. Charges/Coding Visit Charges Inpatient E&M: 69073 Init Hosp L2
[2023-09-06 21:00] VITALS: BP 149/81; PULSE 72; RESP 20; O2SAT 92
[2023-09-06 21:34] LABS: Hemoglobin A1c 7.1 % (3.8-5.6)
[2023-09-06 21:38] LABS: Reflex Troponin-HS? (from REC) Y
[2023-09-06 21:39] LABS: Prothrombin Time (Protime)PT. 12.7 SECONDS (11.7-14.9)
[2023-09-06 21:40] LABS: Partial Thromboplast Time 30.5 Seconds (24.1-36.2)
--- NOTE | 2023-09-06 21:41 | ECHOCS_ITS ---
Reason For Study: Chest pain Procedure This was a 2D Doppler, Color Flow transthoracic echocardiogram. The study was technically difficult. Exam performed portable in patient room. Left Ventricle Normal LV size. The left ventricular ejection fraction is 40 %. Stage 1 diastolic dysfunction. Mild to moderate segmental systolic dysfunction (see wall motion). Marshall : Akinetic. Mid-Anterior : Hypokinetic. Mid-anteroseptal : Hypokinetic. Right Ventricle Normal RV size. Normal systolic function. Tricuspid Valve Normal tricuspid valve. Mild (1+) tricuspid valve insufficiency. Pulmonary artery systolic pressure is 32 mmHg. Pulmonic Valve Normal pulmonic valve. Mild (1+) pulmonic valve insufficiency. Great Vessels Normal aortic root. The pulmonary artery is normal size. Normal inferior vena cava. Pericardium/Pleural No pericardial effusion. Medication Diluted definity 3ml given slow IV push to enhance endocardial definition. MMode/2D Measurements & Calculations LVIDd: 4.5 cm IVSd: 1.5 cm Ao root diam: 3.9 cm LVIDs: 3.2 cm LVPWd: 1.1 cm RVDd: 2.9 cm FS: 30.1 % LAV(MOD-bp): 54.7 ml SV(MOD-sp4): 44.0 ml LVAd ap4: 30.2 cm2 LAV(MOD-bp) Indexed: 26.7 ml/m2 LVLd ap4: 8.1 cm LAV(MOD-sp2): 55.5 ml EDV(MOD-sp4): 92.9 ml LAV(MOD-sp4): 51.9 ml EDV(sp4-el): 96.3 ml LVAs ap4: 21.2 cm2 LVLs ap4: 7.3 cm ESV(MOD-sp4): 48.9 ml ESV(sp4-el): 51.8 ml EF(MOD-sp4): 47.4 % EF(sp4-el): 46.2 % SV(sp4-el): 44.4 ml LA dimension(2D): 3.6 cm LA A4 area: 18.8 cm2 TAPSE: 2.4 cm RA A4 area: 11.8 cm2 Time Measurements MV dec time: 0.19 sec Doppler Measurements & Calculations MV E max andrew: 73.6 cm/sec Lat Peak E' Andrew: 6.5 cm/sec Med Peak E' Andrew: 6.3 cm/sec MV A max andrew: 102.3 cm/sec E/E' lat: 11.3 E/E' med: 11.6 MV E/A: 0.72 Ao V2 max: 122.7 cm/sec LV V1 max: 84.0 cm/sec MV dec slope: 406.5 cm/sec2 Ao max P.0 mmHg LV V1 max P.8 mmHg Ao V2 mean: 87.2 cm/sec LV V1 mean P.7 mmHg Ao mean P.4 mmHg LV V1 mean: 61.7 cm/sec Ao V2 VTI: 27.7 cm LV V1 VTI: 21.7 cm AV (velocity ratio): 0.78 PA V2 max: 100.1 cm/sec TR max andrew: 268.4 cm/sec PA V2 mean: 69.9 cm/sec TR max P.8 mmHg ECHO/Echo Complete W/ Contrast Interpretation Summary The left ventricular ejection fraction is 40 %. Stage 1 diastolic dysfunction. Normal LV size. Mild to moderate segmental systolic dysfunction (see wall motion). Ordering Physician: Isaac Leon Referring Physician: Gene Swain MD Performed By: Johana Calderon RVT, RDCS and Student
[2023-09-06 21:42] VITALS: BMI 33.2
[2023-09-06 21:51] VITALS: BP 151/83; PULSE 71; RESP 16; TEMP 36.8; O2SAT 96
[2023-09-06] MEDS: HEPARIN/D5w 25,000 UNITS 25,000 UNITS/250 ML IV.SOLN. 10 UNITS CONT INF (22:20)
[2023-09-06] MEDS: Insulin Lispro 100 UNIT/ML INSULN.PEN SC (22:24)
[2023-09-06] MEDS: Carvedilol 6.25 MG Tablet PO (22:25)
[2023-09-06] MEDS: Atorvastatin Calcium 40 MG Tablet PO (22:25)
[2023-09-06] MEDS: Acetaminophen 325 MG Tablet 650 MG PO (22:33)
[2023-09-06 22:51] LABS: Troponin-I HS 3832 pg/mL (3.0-78.0)
[2023-09-06 22:54] LABS: Bedside Glucose 227 mg/dL (74-106)
--- NOTE | 2023-09-06 23:27 | EKG12_ITS ---
Test Reason : CP Blood Pressure : / mmHG Vent. Rate : 123 BPM Atrial Rate : 123 BPM P-R Int : 184 ms QRS Dur : 078 ms QT Int : 308 ms P-R-T Axes : -03 -21 096 degrees QTc Int : 440 ms Sinus tachycardia Marked ST abnormality, possible lateral subendocardial injury Abnormal ECG Confirmed by VALE CASTAÑEDA, GEORGE ([id number]), index editor JOHNNY MCWILLIAMS ([id number]) on 09/12/2023 1:40:54 PM Referred By: Confirmed By:MEGAN COLLAZO MD
[2023-09-07] VITALS (13 sets, daily range): BP systolic 100–165; BP diastolic 36–96; PULSE 63–84; RESP 14–19; TEMP 36–36.7; O2SAT 94–97
[2023-09-07 02:59] LABS: Troponin-I HS 25148 pg/mL (3.0-78.0)
[2023-09-07 04:43] LABS: Hematocrit 43.6 % (40-54); Hemoglobin 14.5 g/dL (13.0-16.5); Mean Corp Hgb Conc 33.3 g/dL (32-36); Mean Corpuscular Hgb 27.6 pg (27.0-32.0); Mean Platelet Vol. 9.1 fl (6.2-12.0); Platelet Count 289 K/mm3 (150-450); RBC Distribution Width CV 13.9 % (11.6-14.6); RBC Distribution Width SD 40.5 fl (35.1-43.9); Red Blood Count 5.25 M/mm3 (4.6-6.2); White Blood Count 7.3 K/mm3 (4.4-11.0)
[2023-09-07 04:53] LABS: Partial Thromboplast Time 40.5 Seconds (24.1-36.2)
[2023-09-07 04:59] LABS: Anion Gap 8 (5-15); BUN 15 mg/dL (7-18); BUN/Creat Ratio 17.1 RATIO (10-20); Calcium,Total 9.1 mg/dL (8.5-10.1); Chloride 108 mmol/L (98-107); Creatinine, Serum 0.88 mg/dL (0.70-1.30); EST Glomerular Filtration Rate 88 mL/min (>60); Est Glom Filt Rate - Afr Amer 107 mL/min (>60); Estimated Creatinine Clearance 71.57 ml/min; Glucose 199 mg/dL (74-106); Sodium Level 140 mmol/L (136-145)
[2023-09-07] MEDS: Heparin Injection (Vial) 5,000 UNIT/ML VIAL IV (04:59)
[2023-09-07 05:48] LABS: Troponin-I HS 30120 pg/mL (3.0-78.0)
--- NOTE | 2023-09-07 06:28 | EKG12_ITS ---
Test Reason : Blood Pressure : / mmHG Vent. Rate : 067 BPM Atrial Rate : 067 BPM P-R Int : 208 ms QRS Dur : 086 ms QT Int : 474 ms P-R-T Axes : 028 -23 -07 degrees QTc Int : 500 ms Normal sinus rhythm T wave abnormality, consider anterolateral ischemia Prolonged QT Abnormal ECG When compared with ECG of 06-SEP-2023 23:07, MANUAL COMPARISON REQUIRED, DATA IS UNCONFIRMED Confirmed by VALE CASTAÑEDA, GEORGE ([id number]), senior technical editor JOHNNY MCWILLIAMS ([id number]) on 09/12/2023 2:06:17 PM Referred By: MARK Confirmed By:MEGAN COLLAZO MD
--- NOTE | 2023-09-07 07:28 | CON.PCM.CA_ITS ---
Assessment & Plan Assessment/Plan (1) NSTEMI, initial episode of care: PLAN: He presents with a non-ST elevation myocardial infarction. He is currently pain-free. His EKG is suggestive of a left anterior descending artery lesion or left main lesion. I did suggest to him that this will be investigated later this morning with a cardiac catheterization. The risk benefits alternatives have been explained to him and his son they understand and agree to proceed. Depending on the findings further recommendations will be made. In the meantime we will continue with the following: Aspirin, High-dose statin Beta-eb N.p.o. for cardiac catheterization Addendum: Cardiac catheterization demonstrated left main with distal 40% stenosis and a totally occluded LAD Left circumflex artery had mild disease. Right coronary artery was patent. Mildly reduced ejection fraction with anterior apical hypokinesis estimated EF of 45%. Based on the above angiographic findings will recommend transfer to a tertiary care facility for consideration for coronary artery bypass surgery as an attempt at PCI was unsuccessful. Above discussed with family. (2) History of hypertension: PLAN: He does have a history of hypertension. His blood pressure is not well- controlled. I would recommend a beta-eb as well as an RAYMOND or ARB. Thank you for allowing me to participate in the care of your patient. Please don't hesitate to call if any issues arise. HPI Consult Data Date of Consult: 09/07/23 HPI Narrative HPI Narrative: KASSANDRA AKINS, is a 83 M who presents to the emergency room with chest discomfort. He said that he has had a minor chest discomfort in the past but he was driving his car to [facility] when he had sudden onset of midsternal chest heaviness radiating to both arms. He was mildly diaphoretic. He does have a history of hyperlipidemia. Tension and diabetes. He had an eschar for low-grade and decided that it was severe enough for him to come to the emergency room. He was seen in the emergency room and an EKG was done which demonstrated sinus tachycardia with ST depression across the precordial leads. He was given heparin aspirin and nitroglycerin. There was improvement in his discomfort after the nitroglycerin. He was also given a dose of IV Lopressor which demonstrated improvement in his heart rate. His ST depressions also improved. This morning he is pain-free. His EKG this morning demonstrates sinus rhythm with a rate of 67 bpm and T wave inversions noted anteriorly. [facility] Medical History Actinic keratosis Hyperlipidemia Hypothyroidism Diabetes Hypertension Home Medications ?Medication ?Instructions ?Recorded ?Last Taken ?Type amlodipine 10 mg tablet 10 mg PO DAILY 09/06/23 Unknown History furosemide 20 mg tablet 20 mg PO DAILY 09/06/23 Unknown History glimepiride 2 mg tablet 2 mg PO DAILY 09/06/23 Unknown History levothyroxine 75 mcg tablet 75 mcg PO DAILY 09/06/23 Unknown History lisinopril 40 mg tablet 40 mg PO DAILY 09/06/23 Unknown History meloxicam 7.5 mg tablet 7.5 mg PO DAILY 09/06/23 Unknown History pravastatin 20 mg tablet 20 mg PO DAILY 09/06/23 Unknown History Allergy/AdvReac Type Severity Reaction Status Date / Time codeine Allergy Mild Hives Verified 09/06/23 19:16 Surgical History History of amputation of finger History of tonsillectomy and adenoidectomy Social History household members: none Smoking Status: Never smoker substance use type: does not use ROS Constitutional Constitutional: Denies fever(s) or weight loss Eyes Eyes: Reports systems reviewed and no addt'l complaints, except as documented ENT HEENT: Reports systems reviewed and no addt'l complaints, except as documented Cardiovascular Cardiovascular: Reports chest pain at rest and dyspnea at rest; Denies chest pain with activity, dyspnea on exertion, edema, palpitations or paroxysmal nocturnal dyspnea Respiratory/Chest Respiratory/Chest: Denies dyspnea on exertion, productive cough, shortness of breath at rest or shortness of breath with exertion Gastrointestinal Gastrointestinal: Denies change in bowel habits, nausea, vomiting or weight changes Genitourinary Genitourinary: Denies difficulty urinating Musculoskeletal Musculoskeletal: Denies joint stiffness or muscle weakness Integumentary Integumentary: Denies lesions Neurologic Neurologic: Denies dizziness or syncope Psychiatric Psychiatric: Denies anxiety Endocrine Endocrinology: Denies excessive sweating or fatigue Hematologic/Lymphatic Hematologic/Lymphatic: Denies anemia Allergic/Immunologic Allergic/Immunologic: Denies seasonal rhinorrhea Physical Exam Const alert, oriented x3 and no apparent distress General Appearance: cooperative HEENT hearing grossly normal bilaterally Head and Scalp: atraumatic Eyes EOMs intact bilaterally Neck General: normal visual inspection Chest inspection of chest normal and palpation of chest normal Resp normal respiratory effort Auscultation: clear to auscultation bilaterally Cardio regular rate, regular rhythm, S1 normal heart sound and S2 normal heart sound Jugular Venous Distention: JVD GI normal to inspection, nondistended, normoactive bowel sounds Extremity normal capillary refill and no pedal edema Peripheral Pulses: Yes pulses 2+ throughout and femoral pulses present Skin no rashes or lesions noted Neuro oriented x3 and CN's II-XII intact bilaterally Psych Appearance: grossly normal and appropriate Risk Stratification Risk Stratification Applicable: Yes Age >/= 65: Yes >/= 3 CAD Risk Factors (HTN, HLD, DM, family hx of CAD, or current smoker): Yes Aspirin Use in the Past 7 Days: No Severe Angina (>/= episodes in 24 hours): No EKG ST Changes >/= 0.5mm: Yes Positive Cardiac Marker: Yes JOAQUIN Risk Stratification Score: 4 JOAQUIN % Risk: 20% Risk Objective Data Vital Signs: Vital Signs Temp Pulse Resp BP Pulse Ox O2 Del Method 98.1 F 74 16 165/94 H 97 Room Air 09/07/23 06:30 09/07/23 06:30 09/07/23 06:30 09/07/23 06:30 09/07/23 06:30 09/07/23 06:30 Oxygen Delivery Method Room Air Weight: 212 lb 4.882 oz Body Mass Index (BMI) 33.2 Intake & Output: Intake and Output for Last 24 Hours 09/05/23 09/06/23 09/07/23 23:59 23:59 23:59 Intake Total 66.67 / 66.67 Output Total 1250 / 1250 Balance -1183.33 / -1183.33 Lab / Micro Data 09/07/23 04:35 09/07/23 04:35 Labs: Laboratory Results - last 24 hr 09/06/23 19:34: WBC 10.7, RBC 5.58, Hgb 15.0, Hct 46.2, MCV 82.8, MCH 26.9 L, MCHC 32.5, RDW Std Deviation 40.7, RDW Coeff of Asya 13.7, Plt Count 350, MPV 9.3, Immature Gran % (Auto) 0.600, Neut % (Auto) 44.2 L, Lymph % (Auto) 43.2 H, Jerome % (Auto) 9.1, Eos % (Auto) 2.0, Baso % (Auto) 0.9, Absolute Neuts (auto) 4.8, Absolute Lymphs (auto) 4.63 H, Nucleated RBC % 0, PT 12.7, INR 1.0, APTT 30.5, Sodium 138, Potassium 4.0, Chloride 105, Carbon Dioxide 24.0, Anion Gap 9, BUN 17, Creatinine 1.19, Estim Creat Clear Calc 52.34, Est GFR (MDRD) Af Amer 75, Est GFR (MDRD) Non-Af 62, BUN/Creatinine Ratio 14.3, Glucose 223 H, H emoglobin A1c 7.1 H, Calcium 9.7, Troponin I High Sens 9 09/06/23 21:50: Troponin I High Sens 3832 H* 09/06/23 22:23: POC Glucose 227 H 09/07/23 01:45: Troponin I High Sens [id number] H* 09/07/23 04:35: WBC 7.3, RBC 5.25, Hgb 14.5, Hct 43.6, MCV 83.0, MCH 27.6, MCHC 33.3, RDW Std Deviation 40.5, RDW Coeff of Asya 13.9, Plt Count 289, MPV 9.1, A PTT 40.5 H, Sodium 140, Potassium 4.0, Chloride 108 H, Carbon Dioxide 24.0, Anion Gap 8, BUN 15, Creatinine 0.88, Estim Creat Clear Calc 71.57, Est GFR (MDRD) Af Amer 107, Est GFR (MDRD) Non-Af 88, BUN/Creatinine Ratio 17.1, Glucose 199 H, Calcium 9.1, Troponin I High Sens 05705 H* Rhythm Strip Rhythm Strip: Sinus Tach Rate: 123 Ectopy: None Cardiology Labs/Tests 09/06/23 19:34: WBC 10.7, RBC 5.58, Hgb 15.0, Hct 46.2, MCV 82.8, MCH 26.9 L, MCHC 32.5, Plt Count 350, MPV 9.3, Immature Gran % (Auto) 0.600, Neut % (Auto) 44.2 L, Lymph % (Auto) 43.2 H, Jerome % (Auto) 9.1, Eos % (Auto) 2.0, Baso % (Auto) 0.9, Absolute Neuts (auto) 4.8, Nucleated RBC % 0, PT 12.7, INR 1.0, APTT 30.5, Sodium 138, Potassium 4.0, Chloride 105, Carbon Dioxide 24.0, Anion Gap 9, BUN 17, Creatinine 1.19, Est GFR (MDRD) Af Amer 75, Est GFR (MDRD) Non-Af 62, BUN/Creatinine Ratio 14.3, Glucose 223 H, Hemoglobin A1c 7.1 H, Calcium 9.7 09/07/23 04:35: WBC 7.3, RBC 5.25, Hgb 14.5, Hct 43.6, MCV 83.0, MCH 27.6, MCHC 33.3, Plt Count 289, MPV 9.1, APTT 40.5 H, Sodium 140, Potassium 4.0, Chloride 108 H, Carbon Dioxide 24.0, Anion Gap 8, BUN 15, Creatinine 0.88, Est GFR (MDRD) Af Amer 107, Est GFR (MDRD) Non-Af 88, BUN/Creatinine Ratio 17.1, Glucose 199 H, Calcium 9.1 Rhythm: EKG: ECHO: Stress Test: Cardiac Cath: PCI: CT Surgery: Holter monitor: EPS: PPM: CXR: Chest CT Scan: Radiography Diagnostic Testing: Radiology Impression Chest X-Ray 09/06/23 19:43 IMPRESSION: No radiographic evidence of acute cardiopulmonary disease. Electronically Signed: Keith Browne MD at 20:31 EDT ,
[2023-09-07] MEDS: Carvedilol 6.25 MG Tablet PO (07:40)
[2023-09-07] MEDS: TICAGRELOR 90 MG TABLET PO (07:40)
[2023-09-07] MEDS: 0.9% Normal Saline (1000mL) 1,000 ML 15 ML IV (07:42)
--- NOTE | 2023-09-07 09:44 | NURSING ---
This RN called and gave report to KIRSTIN Calloway in [employer] lab[employer].
--- NOTE | 2023-09-07 11:38 | PN_ITS ---
Subjective Subjective Patient seen and examined. He had no complaints. He had not had any more chest pain overnight. He was admitted with a complaint of chest pain and is being managed for non-STEMI. He is due for cardiac cath today. He has remained hemodynamically stable and is on room air. Objective Data Objective Data Vital Signs: Vital Signs Temp Pulse Resp BP Pulse Ox O2 Del Method 98.1 F 74 16 165/94 H 96 Room Air 09/07/23 06:30 09/07/23 06:30 09/07/23 06:30 09/07/23 06:30 09/07/23 07:17 09/07/23 08:45 Oxygen Delivery Method Room Air Weight: 212 lb 4.882 oz Body Mass Index (BMI) 33.2 Intake & Output: Intake and Output for Last 24 Hours 09/05/23 09/06/23 09/07/23 23:59 23:59 23:59 Intake Total 100.87 / 100.87 Output Total 1250 / 1250 Balance -1149.13 / -1149.13 Lab / Micro Data 09/07/23 04:35 09/07/23 04:35 Labs: Laboratory Results - last 24 hr 09/06/23 19:34: WBC 10.7, RBC 5.58, Hgb 15.0, Hct 46.2, MCV 82.8, MCH 26.9 L, MCHC 32.5, RDW Std Deviation 40.7, RDW Coeff of Asya 13.7, Plt Count 350, MPV 9.3, Immature Gran % (Auto) 0.600, Neut % (Auto) 44.2 L, Lymph % (Auto) 43.2 H, [place] % (Auto) 9.1, Eos % (Auto) 2.0, Baso % (Auto) 0.9, Absolute Neuts (auto) 4.8, Absolute Lymphs (auto) 4.63 H, Nucleated RBC % 0, PT 12.7, INR 1.0, APTT 30.5, Sodium 138, Potassium 4.0, Chloride 105, Carbon Dioxide 24.0, Anion Gap 9, BUN 17, Creatinine 1.19, Estim Creat Clear Calc 52.34, Est GFR (MDRD) Af Amer 75, Est GFR (MDRD) Non-Af 62, BUN/Creatinine Ratio 14.3, Glucose 223 H, H emoglobin A1c 7.1 H, Calcium 9.7, Troponin I High Sens 9 09/06/23 21:50: Troponin I High Sens 3832 H* 09/06/23 22:23: POC Glucose 227 H 09/07/23 01:45: Troponin I High Sens 57520 H* 09/07/23 04:35: WBC 7.3, RBC 5.25, Hgb 14.5, Hct 43.6, MCV 83.0, MCH 27.6, MCHC 33.3, RDW Std Deviation 40.5, RDW Coeff of Asya 13.9, Plt Count 289, MPV 9.1, A PTT 40.5 H, Sodium 140, Potassium 4.0, Chloride 108 H, Carbon Dioxide 24.0, Anion Gap 8, BUN 15, Creatinine 0.88, Estim Creat Clear Calc 71.57, Est GFR (MDRD) Af Amer 107, Est GFR (MDRD) Non-Af 88, BUN/Creatinine Ratio 17.1, Glucose 199 H, Calcium 9.1, Troponin I High Sens 16327 H* Radiography Diagnostic Testing: Radiology Impression Chest X-Ray 09/06/23 19:43 IMPRESSION: No radiographic evidence of acute cardiopulmonary disease. Electronically Signed: Keith Browne MD at 20:31 EDT , Echocardiogram 09/06/23 21:41 Interpretation Summary The left ventricular ejection fraction is 40 %. Stage 1 diastolic dysfunction. Normal LV size. Mild to moderate segmental systolic dysfunction (see wall motion). Ordering Physician: Isaac Leon Referring Physician: Gene Swain MD Performed By: Kvng DOBSON RDCS, Johana and Student Rhythm Strip Rhythm Strip: Sinus Tach Rate: 123 Ectopy: None Physical Exam Const alert, oriented x3 and no apparent distress General Appearance: cooperative and well developed HEENT normocephalic, head/scalp atraumatic, moist oral mucous membranes and oropharynx normal Eyes PERRL and EOMs intact bilaterally Neck no lymphadenopathy and supple Lymph Lymphatic: no lymphadenopathy noted and no lymphedema noted Resp normal respiratory effort, normal air movement and clear to auscultation bilaterally Cardio regular rate, regular rhythm, S1 normal heart sound, S2 normal heart sound and no murmurs GI normal to inspection, nondistended, normoactive bowel sounds, soft to palpation, non-tender and non-distended Extremity normal capillary refill, no clubbing, cyanosis or edema and no calf tenderness General Extremity: no tenderness to palpation of joints or extremities Skin General Skin Exam: no breakdown Neuro CN's II-XII intact bilaterally, no focal motor deficits, no sensory deficits noted and deep tendon reflexes 2+ bilaterally Motor Exam: strength 5/5 throughout and general weakness Psych thought process normal, cooperative and affect normal Appearance: appropriate Assessment & Plan Assessment/Plan (1) NSTEMI, initial episode of care: (2) History of hypertension: PLAN: Plan #Nonstemi * patient admitted with a complaint of chest pain and found to have nonstemi * troponins trended up to >30k * on aspirin, high intensity statin and loading dose of brilinta as well as heparin drip * cardiology on board * had 2D echo today which showed EF of 40% and stage 1 diastolic dysfunction with normal LV size and mild to moderate segmental systolic dysfunction. * for cardiac cath today: this showed severe single vessel disease with a totally occluded proximal left anterior descendiing artery with faint collaterals and mildly reduced LV systolic fynction. PCI was unsuccessful, so patient being transfered to [facility] for evaluation for CABG. * also on coreg * #Hypertension: * on amlodipine and lisinopril which were held on admission. * Started on Coreg. * IV hydralazine as needed. #Type 2 diabetes mellitus: * A1c was 7.1. On insulin sliding scale. * Accu-Cheks ACHS. * On glimepiride at home. #Hypothyroidism: On Synthroid. Currently on Synthroid 75 mg daily. TSH was 10.5 on 08/14/2023, which is an improvement from 41.9 on 05/08/2023. # hyperlipidemia: On statin. DVT prophylaxis: now off heparin drip after cath. SCDs for now Disposition: awaiting transfer to [facility] for evaluation for CABG. Accepted to the service of CT surgery at [place], pending bed availability Charges/Coding Visit Charges Inpatient E&M: 05426 [facility] Hosp L3
--- NOTE | 2023-09-07 12:06 | CL.I_ITS ---
Patient Name: KASSANDRA AKINS Study Date: 09/07/2023 Performing: Shellie Hammonds MD Ht: 67 inches 170.18 cm : 1940 Wt: 212.6 lbs 96.3 kg Age: 83 Gender: male BSA: 2.07 PROCEDURE(S) PERFORMED DC02-([id number])[facility] CLINICAL PROFILE AND CO-MORBIDITIES Indications: ACS <= 24 hrs, NSTEMI Heart Failure: None CONCLUSIONS Unsuccessful PTCA of the LAD RECOMMENDATIONS DESCRIPTION OF PROCEDURE The patient arrived to the procedure lab. The risks and benefits of the procedure as well as a full description of our services here and current unavailability of surgical backup were fully explained to the patient and/or their significant other prior to the catheterization. The Timeout was completed, verifying the correct patient and procedure. The patient's procedural site was prepped and draped in the usual fashion. Local anesthetic was given subcutaneously to right radial region with Lidocaine 2% Using a modified Seldinger technique,arterial access was obtained via the right radial artery, a 6Fr sheath was inserted by Jignesh Etienne Right Coronary Artery selective angiography was then performed in multiple views using a 5 Fr. 4.0 [place] catheter. Left Coronary Artery selective angiography was performed in multiple views using a 5 Fr. JL3.5 catheter.The images were reviewed and options discussed. A decision was then made to proceed with an Intervention, IVUS or other adjunct procedure. xb3 Guide catheter was inserted and engaged into the LCA. The FFR/iFR wire was inserted. iFR measurements were performed. iFR Ratio: .99/.99 iFR Ratio: .98/1.02 The FFR/iFR wire was then removed. bmw Guide wire was advanced to the LAD. wisper wire Guide wire was inserted as a raman wire The arterial sheath was pulled and a TR Band was applied for hemostasis INTERVENTION INFORMATION LESION SITE: Left Main (Distal) Pre Stenosis: 100 % Pre intervention JOAQUIN flow: 0 PROCEDURE: Unsuccessful PTCA iFR of the distal left main was performed and it was 0.99. We then tried to cross the occluded LAD and were unsuccessful with both the BMW and whisper wire. Post Stenosis: 100 % Post intervention JOAQUIN flow: 0 Lesion Devices: Cordis 6 Fr XB3.0 100cm Guide Catheter addwish [facility] Coronary FFR Wire COMPLICATIONS No Complications PROCEDURE MEDICATIONS Versed 1 mg IV Fentanyl 50 mcg IV Oxygen: 2 L/min via nasal cannula Aspirin (325mg) 1 Tabs PO @ 09/07/2023 10:20:21 Heparin given IA 09/07/2023 10:32:30 Heparin 5000 unit(s) IV 09/07/2023 11:00:50 Verapamil 2.5mg, Ntg 200mcgs, 2000 units of Heparin given IA 09/07/2023 10:32:30 SUMMARY OF HEMODYNAMIC DATA Time AIR REST ECG 10:11:40 AO 114/62 (85) SA 10:41:28 Signed By Shellie Hammonds MD On 09/07/2023 12:05:01 Shellie Hammonds MD
[2023-09-07] MEDS: Insulin Lispro 100 UNIT/ML INSULN.PEN SC ×2 (12:07→16:24)
[2023-09-07] MEDS: 0.9% Normal Saline (1000mL) 1,000 ML 60 ML IV (12:08)
[2023-09-07 12:17] LABS: Bedside Glucose 172 mg/dL (74-106)
--- NOTE | 2023-09-07 12:21 | CL.D_ITS ---
Patient Name: KASSANDRA AKINS Study Date: 09/07/2023 Performing: Cosme Dudley MD Ht: 67 inches 170.18 cm : 1940 Wt: 212.6 lbs 96.3 kg Age: 83 Gender: male BSA: 2.07 PROCEDURE(S) PERFORMED IC10-([id number])FFR, CORONARY OR GRAFT, INITIAL VESSEL DC02-([id number])[facility] CLINICAL PROFILE AND INDICATIONS Indications: ACS <= 24 hrs, NSTEMI, Suspected CAD Heart Failure: None Stress/Imaging Stress/Image Study Performed: No CAD Presentations: Non-STEMI. Symptom onset Date/Time: 09/06/23 Time Not Available CONCLUSIONS Severe single-vessel disease with a totally occluded proximal left anterior descending artery with faint collaterals and mildly reduced left ventricular systolic function. RECOMMENDATIONS Attempted PCI was unsuccessful and so we will consider transfer for coronary bypass surgery consideration. DESCRIPTION OF PROCEDURE The patient arrived to the procedure lab. The risks and benefits of the procedure as well as a full description of our services here and current unavailability of surgical backup were fully explained to the patient and/or their significant other prior to the catheterization. The Timeout was completed, verifying the correct patient and procedure. The patient's procedural site was prepped and draped in the usual fashion. Local anesthetic was given subcutaneously to right radial region with Lidocaine 2%. Using a modified Seldinger technique, arterial access was obtained via the right radial artery, a 6Fr sheath was inserted by Jignesh Etienne Right Coronary Artery selective angiography was then performed in multiple views using a 5 Fr. 4.0 [place] catheter. Left Coronary Artery selective angiography was performed in multiple views using a 5 Fr. JL3.5 catheter.The arterial sheath was pulled and a TR Band was applied for hemostasis CORONARY ANGIOGRAPHY DOMINANCE: Right Dominant LEFT HEART ASSESSMENT Left Ventricular Ejection Fraction: by LV Gram 45 % Anterior Hypokinesis - Moderate. Apical Akinesis Depressed Left Ventricular systolic function LEFT MAIN: Distal 40% stenosis LEFT ANTERIOR DESCENDING ARTERY: PROX LAD: % Stenosis CIRCUMFLEX ARTERY: Mildly calcified with first prominent obtuse marginal branch with mild disease in the AV groove branch with mild disease. RIGHT CORONARY ARTERY: Mild luminal irregularities COMPLICATIONS No Complications PROCEDURE MEDICATIONS Versed 1 mg IV Fentanyl 50 mcg IV Oxygen: 2 L/min via nasal cannula Aspirin (325mg) 1 Tabs PO @ 09/07/2023 10:20:21 Heparin given IA 09/07/2023 10:32:30 Heparin 5000 unit(s) IV 09/07/2023 11:00:50 Verapamil 2.5mg, Ntg 200mcgs, 2000 units of Heparin given IA 09/07/2023 10:32:30 SUMMARY OF HEMODYNAMIC DATA Time AIR REST ECG 10:11:40 AO 114/62 (85) SA 10:41:28 Signed By Cosme Dudley MD On 09/07/2023 12:20:58 Cosme Dudley MD
--- NOTE | 2023-09-07 16:04 | PCM.DC.SUM ---
Providers Date of Admission: 09/06/23 Date of Discharge: 09/07/23 Primary Care Physician: Dr. Gene Swain MD Consultations 09/06/23 21:41 Consult: Cardiology Routine Consulting Provider: Odilon Chaudhary Reason for Consult: NSTEMI EMERGENT Consult: No MD Notified: Yes Date Notified: 09/07/23 Time Notified: 06:12 Method of Notification: Text Reason For Visit: NSTEMI Diagnosis Discharge Diagnosis (1) NSTEMI, initial episode of care: Status: Acute Code(s): I21.4 - Non-ST elevation (NSTEMI) myocardial infarction (2) History of hypertension: Status: Acute Code(s): Z86.79 - Personal history of other diseases of the circulatory system Plan #Nonstemi patient admitted with a complaint of chest pain and found to have nonstemi troponins trended up to >30k on aspirin, high intensity statin and loading dose of brilinta as well as heparin drip cardiology on board had 2D echo today which showed EF of 40% and stage 1 diastolic dysfunction with normal LV size and mild to moderate segmental systolic dysfunction. 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 PCI was unsuccessful, so patient being transfered to [facility] for evaluation for CABG. also on coreg #Hypertension: on amlodipine and lisinopril which were held on admission. Started on Coreg. IV hydralazine as needed. #Type 2 diabetes mellitus: A1c was 7.1. On insulin sliding scale. Accu-Cheks ACHS. On glimepiride at home. #Hypothyroidism: On Synthroid. Currently on Synthroid 75 mg daily. TSH was 10.5 on 08/14/2023, which is an improvement from 41.9 on 05/08/2023. # hyperlipidemia: On statin. DVT prophylaxis: now off heparin drip after cath. SCDs for now Disposition: awaiting transfer to [facility] for evaluation for CABG. Accepted to the service of CT surgery at [facility], pending bed availability Medications at Discharge Home Medications amlodipine 10 mg tablet 10 mg PO DAILY 09/06/23 furosemide 20 mg tablet 20 mg PO DAILY 09/06/23 glimepiride 2 mg tablet 2 mg PO DAILY 09/06/23 levothyroxine 75 mcg tablet 75 mcg PO DAILY 09/06/23 lisinopril 40 mg tablet 40 mg PO DAILY 09/06/23 meloxicam 7.5 mg tablet 7.5 mg PO DAILY 09/06/23 pravastatin 20 mg tablet 20 mg PO DAILY 09/06/23 Hospital Course Operations None Procedures 2-D Echocardiogram and Cardiac catheterization Summary of Care Provided Minutes Spent on Discharge: 45 Hospital Course: Patient is an 83-year-old male with a past medical history as outlined was admitted through the ED on 09/06/2023 with a complaint of chest pain. He was driving his car about 20 to 30 minutes prior to coming to the ED and started having sudden onset chest pain which was retrosternal and radiated to both arms. He had never had chest pain of such severe intensity before. He denied any lightheadedness with dizziness, palpitations or any other symptoms. He did not have any history of DVT or PE. In the ED initial troponin was negative but subsequently trended up to over 30,000. EKG showed diffuse ST depressions in precordial leads. He was admitted and managed for non-STEMI and cardiology was consulted. He was given heparin bolus and heparin drip as well as aspirin and Brilinta and high intensity statin. He had 2D echo which showed EF of 40% with stage I diastolic dysfunction and mild to moderate segmental systolic dysfunction and pulmonary artery systolic pressure of 32 mmHg.he had cardiac cath which showed severe single vessel disease with a totally occluded proximal left anterior descending artery with faint collaterals and mildly reduced left ventricular systolic function. Attempted PCI was unsuccessful, and so decision was made to transfer him to [facility] for evaluation for CABG. He was accepted to the service of CT surgery and transferred to [facility] on 09/07/2023. Patient seen and examined. His sons were by his bedside. He had no active complaints. Review of systems is otherwise negative. Physical Exam Const alert, oriented x3 and no apparent distress General Appearance: cooperative, comfortable, well kempt and well developed Orientation / Consciousness: awake HEENT normocephalic, head/scalp atraumatic, hearing grossly normal bilaterally, nasal mucous membranes and turbinates normal, moist oral mucous membranes and oropharynx normal Mouth: oral and palatal mucosa normal Eyes PERRL, EOMs intact bilaterally and conjunctivae normal Neck full ROM, no lymphadenopathy and supple Lymph Lymphatic: no lymphadenopathy noted and no lymphedema noted Chest inspection of chest normal Resp normal respiratory effort, normal air movement, no use of accessory muscles and clear to auscultation bilaterally Cardio regular rate, regular rhythm, S1 normal heart sound, S2 normal heart sound, no murmurs and peripheral pulses 2+ throughout GI normal to inspection, nondistended, normoactive bowel sounds, soft to palpation, non-tender and non-distended Back/Spine normal ROM Extremity normal to inspection, full ROM, normal capillary refill, no clubbing, cyanosis or edema, no calf tenderness and no pedal edema General Extremity: no tenderness to palpation of joints or extremities Skin no rashes or lesions noted General Skin Exam: no breakdown Neuro oriented x3, CN's II-XII intact bilaterally, moves all extremities, no focal motor deficits, no sensory deficits noted and deep tendon reflexes 2+ bilaterally Sensorium / Orientation: awake Speech: speech normal Motor Exam: strength 5/5 throughout and general weakness Psych mental status grossly normal, thought process normal, cooperative and affect normal Appearance: appropriate Weight / BMI Weight Weight: 212 lb 4.882 oz Body Mass Index (BMI) 33.2 ABG / Lab / Microbiology Data 09/07/23 04:35 09/07/23 04:35 Laboratory: Laboratory Results - last 24 hr 09/06/23 19:34: WBC 10.7, RBC 5.58, Hgb 15.0, Hct 46.2, MCV 82.8, MCH 26.9 L, MCHC 32.5, RDW Std Deviation 40.7, RDW Coeff of Asya 13.7, Plt Count 350, MPV 9.3, Immature Gran % (Auto) 0.600, Neut % (Auto) 44.2 L, Lymph % (Auto) 43.2 H, [place] % (Auto) 9.1, Eos % (Auto) 2.0, Baso % (Auto) 0.9, Absolute Neuts (auto) 4.8, Absolute Lymphs (auto) 4.63 H, Nucleated RBC % 0, PT 12.7, INR 1.0, APTT 30.5, Sodium 138, Potassium 4.0, Chloride 105, Carbon Dioxide 24.0, Anion Gap 9, BUN 17, Creatinine 1.19, Estim Creat Clear Calc 52.34, Est GFR (MDRD) Af Amer 75, Est GFR (MDRD) Non-Af 62, BUN/Creatinine Ratio 14.3, Glucose 223 H, Hemoglobin A1c 7.1 H, Calcium 9.7, Troponin I High Sens 9 09/06/23 21:50: Troponin I High Sens [id number] H* 09/06/23 22:23: POC Glucose 227 H 09/07/23 01:45: Troponin I High Sens [id number] H* 09/07/23 04:35: WBC 7.3, RBC 5.25, Hgb 14.5, Hct 43.6, MCV 83.0, MCH 27.6, MCHC 33.3, RDW Std Deviation 40.5, RDW Coeff of Asya 13.9, Plt Count 289, MPV 9.1, APTT 40.5 H, Sodium 140, Potassium 4.0, Chloride 108 H, Carbon Dioxide 24.0, Anion Gap 8, BUN 15, Creatinine 0.88, Estim Creat Clear Calc 71.57, Est GFR (MDRD) Af Amer 107, Est GFR (MDRD) Non-Af 88, BUN/Creatinine Ratio 17.1, Glucose 199 H, Calcium 9.1, Troponin I High Sens [id number] H* 09/07/23 11:52: POC Glucose 172 H Radiography Diagnostic Testing: Radiology Impression Chest X-Ray 09/06/23 19:43 IMPRESSION: No radiographic evidence of acute cardiopulmonary disease. Electronically Signed: Keith Browne MD at 20:31 EDT Reading Location ID and State: [address] [place] [address] Tel , Service support , Echocardiogram 09/06/23 21:41 Interpretation Summary The left ventricular ejection fraction is 40 %. Stage 1 diastolic dysfunction. Normal LV size. Mild to moderate segmental systolic dysfunction (see wall motion). Ordering Physician: Isaac Leon Referring Physician: Gene Swain MD Performed By: Kvng DOBSON RD, Johana and Student D/C Instructions Discharge Diet: Low fat / Low cholesterol Discharge Activity: Return to Normal Activity Meaningful Use Info Meaningful Use Meaningful Use Diagnoses (Choose all that apply): AMI AMI/Post PCI/Angioplasty Aspirin given w/in 24hrs of arrival?: Yes ASA at discharge?: Yes Antiplatelet Therapy at Discharge:: No Reason Antiplatelet Therapy not ordered:: transfer Statins at discharge?: No Reason statins not ordered:: Drug Interaction (transfer) Bull/ARB at discharge?: No Reason Bull/ARB not ordered:: Not indicated (transfer) Beta Shaard at discharge?: No Reason Beta Sharad not ordered:: Allergy (being transferred) Done w/ Acute AL measure.: Yes Documented LVEF (%): 40 Ischemic Stroke Statin Dosing Therapy Reference: STATIN DOSE THERAPY REFERENCE: * Patients > 75 years receive moderate or high dose statin therapy. * Patients 75 years or YOUNGER should receive HIGH intensity statin dose unless contraindicated. You will be required to document reason for non-treatment if statin daily dose does not meet guidelines. HIGH DOSE STATIN THERAPY DAILY Atorvastatin > than or = to 40 mg Rosuvastatin > than or = to 20 mg Amlodipine + Atorvastatin > than or = to 2.5/40 mg Ezetimibe + Simvastatin 10/80 mg Simvastatin 80mg Discharge Plan Admission Admit Date/Time: 09/06/23 21:04 Primary Reason for Your Visit: Nonstemi Attending Provider: Veronika Gar Primary Care Provider: Gene Swain Consulting Providers: Odilon Chaudhary; Isaac Leon Instructions Patient Instructions: Heart Attack Dc Discharge Orders/Prescriptions Prescriptions: No Action furosemide 20 mg tablet 20 mg PO DAILY glimepiride 2 mg tablet 2 mg PO DAILY levothyroxine 75 mcg tablet 75 mcg PO DAILY lisinopril 40 mg tablet 40 mg PO DAILY meloxicam 7.5 mg tablet 7.5 mg PO DAILY amlodipine 10 mg tablet 10 mg PO DAILY pravastatin 20 mg tablet 20 mg PO DAILY Referrals / Follow Up: Gene Swain MD [Primary Care Provider] - Within 2 Weeks Disposition Disposition (needs filled in before D/C Order can be placed): Acute Care Hospital Charges/Coding Visit Charges Inpatient E&M: 82116 Disch Hosp >30min
[2023-09-07 16:11] LABS: Bedside Glucose 191 mg/dL (74-106)
[2023-09-07 16:46] LABS: Bedside Glucose 154 mg/dL (74-106)
== END 2023-09-07 19:23 | disposition short-term general hospital (02) | DRG 282 ==
LOC: ED 20:59 → PCU 21:13
PROVIDERS: Admitting Provider Hospitalist; Emergency Provider Emergency Medicine; PCP Family Medicine; Visit Provider Student in an Organized Health Care Education/Training Program
DX: I21.4 Non-ST elevation (NSTEMI) myocardial infarction (principal); E03.9 Hypothyroidism, unspecified; E11.65 Type 2 diabetes mellitus with hyperglycemia; I10 Essential (primary) hypertension; E78.5 Hyperlipidemia, unspecified; E66.9 Obesity, unspecified; Z68.33 Body mass index [BMI] 33.0-33.9, adult; Z79.84 Long term (current) use of oral hypoglycemic drugs; Z79.899 Other long term (current) drug therapy
CPT/HCPCS: 36415; 71045; 80048; 82962; 83036; 84484; 85025; 85027; 85610; 85730; 93005; 93306; 93454; 93571; 94668; 99152; 99153; 99285; C1769; J7030; Q9957; Q9967; A4216; C1887; C1894; C8929

== ENCOUNTER → 2023-10-19 | Outpatient (CLI) | payer MEDICARE, SELFPAY ==
[2023-10-19 17:35] LABS: Hematocrit 42.5 % (40-54); Hemoglobin 13.1 g/dL (13.0-16.5); Mean Corp Hgb Conc 30.8 g/dL (32-36); Mean Corpuscular Hgb 27.1 pg (27.0-32.0); Mean Platelet Vol. 9.1 fl (6.2-12.0); Platelet Count 444 K/mm3 (150-450); RBC Distribution Width CV 15.2 % (11.6-14.6); RBC Distribution Width SD 49.5 fl (35.1-43.9); Red Blood Count 4.83 M/mm3 (4.6-6.2); White Blood Count 5.6 K/mm3 (4.4-11.0)
[2023-10-19 19:09] LABS: Anion Gap 8 (5-15); BUN 15 mg/dL (7-18); BUN/Creat Ratio 11.7 RATIO (10-20); Calcium,Total 9.5 mg/dL (8.5-10.1); Chloride 106 mmol/L (98-107); Creatinine, Serum 1.28 mg/dL (0.70-1.30); EST Glomerular Filtration Rate 57 mL/min (>60); Est Glom Filt Rate - Afr Amer 69 mL/min (>60); Glucose 146 mg/dL (74-106); Potassium 4.5 mmol/L (3.5-5.1); Sodium Level 138 mmol/L (136-145); T4 Free Direct 1.02 ng/dL (0.76-1.46)
== END | disposition home or self-care (01) ==
LOC: MFPLAB 14:25
PROVIDERS: PCP Family Medicine; Visit Provider Family Medicine
DX: E03.9 Hypothyroidism, unspecified (principal); E11.22 Type 2 diabetes mellitus with diabetic chronic kidney disease; I25.10 Atherosclerotic heart disease of native coronary artery without angina pectoris
CPT/HCPCS: 36415; 80048; 84439; 84443; 85027

== ENCOUNTER → 2023-10-30 | Outpatient (CLI) | payer MEDICARE, SELFPAY ==
--- NOTE | 2023-10-30 11:42 | RAD_ITS ---
STUDY: X-RAY - UNILATERAL RIBS ( RIGHT ) REASON FOR EXAM: Male, 83 years old. fall TECHNIQUE: 4 view(s) of the ribs. COMPARISON: None. FINDINGS: Normal visualized ribs without a demonstrated fracture. The visualized lung is clear and expanded. RAD/Ribs Unil 2V No CXR IMPRESSION: Normal x-ray examination of the ribs. Electronically Signed: Osvaldo Taylor MD at 10:10 EDT ,
== END | disposition home or self-care (01) ==
PROVIDERS: PCP Family Medicine; Referring Provider Family Medicine; Visit Provider Family Medicine
DX: R07.81 Pleurodynia (principal)
CPT/HCPCS: 71100

== ENCOUNTER 2023-11-06 14:53 | Emergency (ER) | payer MEDICARE, SELFPAY ==
[2023-11-06 14:55] VITALS: BP 138/88; PULSE 69; RESP 18; TEMP 36.1; O2SAT 94
[2023-11-06 14:58] VITALS: BMI 30.2
[2023-11-06 17:25] VITALS: BP 169/86; PULSE 60; RESP 17; O2SAT 98
--- NOTE | 2023-11-06 17:34 | EKG12_ITS ---
Test Reason : Blood Pressure : / mmHG Vent. Rate : 063 BPM Atrial Rate : 063 BPM P-R Int : 214 ms QRS Dur : 092 ms QT Int : 454 ms P-R-T Axes : 051 -25 077 degrees QTc Int : 464 ms Sinus rhythm with 1st degree A-V block Minimal voltage criteria for LVH, may be normal variant ( R in aVL ) Nonspecific T wave abnormality Abnormal ECG Confirmed by Paul Umaña ([id number]), desk editor JOHNNY MCWILLIAMS ([id number]) on 11/07/2023 10:12:10 AM Referred By: Confirmed By:Paul Umaña
[2023-11-06] MEDS: 0.9% Normal Saline (1000mL) 1,000 ML 999 ML IV (18:08)
--- NOTE | 2023-11-06 18:13 | RAD_ITS ---
INDICATION: sob EXAMINATION/TECHNIQUE: X-RAY - XR Chest 2 Views COMPARISON: FINDINGS: LINES/DEVICES: Sternotomy wires over the mediastinum.. LUNGS: No consolidation, edema or effusion. Left basilar atelectasis. No pneumothorax. MEDIASTINUM AND CARDIOVASCULAR STRUCTURES: Cardiac silhouette not enlarged. Central airways and mediastinal contour are unremarkable. BONES AND SOFT TISSUES: Unremarkable. Hiatal hernia. RAD/Chest PA and Lateral IMPRESSION: Left basilar atelectasis. Hiatal hernia. Electronically Signed: Gonsalo Lopez DO at 18:42 EDT ,
[2023-11-06 18:19] LABS: Absolute Lymphocyte Count 1.74 X10^3/uL (0.83-4.51); Absolute Neutrophil Count 4.4 X10^3/uL (2.0-7.7); Basophil# 0.07 X10^3/uL; Eosinophil# 0.07 X10^3/uL; Hematocrit 40.6 % (40-54); Hemoglobin 12.6 g/dL (13.0-16.5); Lymphocyte # 1.74 X10^3/ul (0.83-4.51); Lymphocyte % 23.7 % (19-41); Mean Corpuscular Hgb 26.8 pg (27.0-32.0); Mean Corpuscular Volume 86.4 fL (80-94); Mean Platelet Vol. 9.3 fl (6.2-12.0); NRBC Flagged by Analyzer 0 % (0-5); Neutrophil # 4.35 X10^3/uL (2.7-7.7); Platelet Count 296 K/mm3 (150-450); RBC Distribution Width CV 14.5 % (11.6-14.6); RBC Distribution Width SD 45.8 fl (35.1-43.9); White Blood Count 7.4 K/mm3 (4.4-11.0)
[2023-11-06 18:39] LABS: ALB/GLOB Ratio 0.8 RATIO (0.9-2.4); AST(SGOT) 20 U/L (15-37); Alanine Aminotransfer ALT/SGPT 11 U/L (16-61); Albumin, Serum 3.2 g/dL (3.2-5.0); Alkaline Phosphatase 116 U/L (45-117); Anion Gap 8 (5-15); BUN 19 mg/dL (7-18); Calcium,Total 8.9 mg/dL (8.5-10.1); Chloride 104 mmol/L (98-107); Creatinine, Serum 1.27 mg/dL (0.70-1.30); EST Glomerular Filtration Rate 58 mL/min (>60); Est Glom Filt Rate - Afr Amer 70 mL/min (>60); Estimated Creatinine Clearance 47.34 ml/min; Globulin 4.2 g/dL (2.2-4.2); Glucose 119 mg/dL (74-106); Protein, Total 7.4 g/dL (6.4-8.2); Sodium Level 134 mmol/L (136-145); Troponin-I HS 14 pg/mL (3.0-78.0)
[2023-11-06 18:47] LABS: Mucous, Urine 0 SEEN /hpf (<or=2+); Red Blood Cells-Urine 0 SEEN /hpf (0-5); Squamous Epithelial Cells - UA 0 SEEN /hpf (0-5)
[2023-11-06 18:53] LABS: Color, Urine Straw (Yellow); Glucose, Dipstick 1000 mg/dl (Normal); Ketone-Dipstick Negative (Negative); Leukocyte Esterase-Dipstick Negative /ul (Negative); Nitrite-Dipstick Negative (Negative); Occult Blood-Urine 10 /ul (Negative); Protein-Dipstick 15 mg/dl (Negative); Specific Gravity, Urine 1.015 (1.002-1.030); Urine Bilirubin Dipstick Negative (Negative); Urine Clarity Clear (Clear); Urine Urobilinogen 1 mg/dl (Normal)
[2023-11-06 19:00] VITALS: BP 159/81; PULSE 66; RESP 16
--- NOTE | 2023-11-06 19:02 | EDS_ITS ---
HPI History of Present Illness Chief Complaint: Fall Narrative Narrative: Patient is a 83-year-old male past medical history of hypertension, CAD, hypothyroidism, diabetes, hypertension, chronic kidney disease, atrial fibrillation on Eliquis, h who presents to the emergency department with chief complaints of multiple falls today. Patient states that he fell twice and noted that the third time when he went to fall his family ember at bedside caught him. He states that he not hit his head did not lose consciousness remembers the entire event. According to the family at bedside over the last day to 2 days he has become more weak and states that he normally walks without any assistance however recently got out of walker secondary to increasing weakness. They note that he recently had open heart surgery about 3 weeks ago at [facility]. They did note that he did have a skin tear to his left forearm which they put a bandage over. [facility] Medical History History of hypertension NSTEMI, initial episode of care Abnormal ECG History of diabetes mellitus Acute chest pain Actinic keratosis Hyperlipidemia Hypothyroidism Diabetes Hypertension Home Medications ?Medication ?Instructions ?Recorded ?Last Taken ?Type levothyroxine 75 mcg tablet 75 mcg PO DAILY 09/06/23 Unknown History amiodarone 200 mg tablet 200 mg PO QDAY 10/20/23 Unknown History apixaban 2.5 mg tablet 2.5 mg PO BID 10/20/23 Unknown History aspirin 81 mg tablet,delayed 81 mg PO QDAY 10/20/23 Unknown History release (Adult Low Dose Aspirin) atorvastatin 40 mg tablet 40 mg PO QDAY 10/20/23 Unknown History clopidogrel 75 mg tablet (Plavix) 75 mg PO QDAY 10/20/23 Unknown History empagliflozin 10 mg tablet 10 mg PO QAM 10/20/23 Unknown History (Jardiance) lorazepam 0.5 mg tablet 0.5 mg PO TID PRN 10/20/23 Unknown History metoprolol tartrate 25 mg tablet 25 mg PO BID 10/20/23 Unknown History mirtazapine 7.5 mg tablet 7.5 mg PO QHS 10/20/23 Unknown History Allergy/AdvReac Type Severity Reaction Status Date / Time codeine Allergy Mild Hives Verified 11/06/23 14:55 Surgical History History of amputation of finger History of tonsillectomy and adenoidectomy Social History household members: none Smoking Status: Never smoker substance use type: does not use ROS ROS ED ROS Narrative Constitutional: Denies any fevers, chills, headaches, lightness, dizziness Cardiovascular: Denies chest pain or palpitations Respiratory: Denies coughing shortness of breath Abdomen: Denies abdominal pain nausea vomit diarrhea : Denies any urinary symptoms Neurological: Complains of generalized weakness as noted above denies numbness, tingling Musculoskeletal: Denies back pain Skin: Complains of a skin tear to the left forearm as noted above EXAM Physical Exam Narrative Exam Narrative: General: Patient lying in bed rest comfortably did not appear to be in acute distress Head: Atraumatic, normocephalic Eyes: PERRL bilateral, EOMI bilateral, no conjunctival injection noted Neck: Soft, supple, trach midline Cardiovascular: Regular rate and rhythm no murmurs gallops rubs noted Respiratory: Clear to auscultation bilaterally Abdomen: Soft, nondistended, nontender to palpation, bowel sounds present x 4 Extremities: +4/5 strength noted in the bilateral upper and lower extremities, no pedal edema noted on exam, radial pulses +2/4 in the bilateral upper extremities Neurological: Patient following commands knew that he was at [facility] year is 2023. NIH of 0 GCS 15 patient completed finger-nose heel klein test bilaterally difficulty Skin: Warm, dry, patient has superficial abrasion/skin tear to the left proximal forearm no active bleeding noted. Const Vital Signs: 11/06/23 14:55 11/06/23 17:25 11/06/23 17:25 Temperature 96.9 F L Temperature Source Temporal Pulse Rate 69 60 Respiratory Rate 18 17 Respiratory Effort Normal Blood Pressure 138/88 H 169/86 H Blood Pressure Mean 104 113 Pulse Ox 94 98 Oxygen Delivery Method Room Air Room Air 11/06/23 19:00 Temperature Temperature Source Pulse Rate 66 Respiratory Rate 16 Respiratory Effort Blood Pressure 159/81 H Blood Pressure Mean 107 Pulse Ox Oxygen Delivery Method MDM MDM MDM Narrative Medical decision making narrative: Patient is a 83-year-old male who presented to the emerged part with chief complaint of multiple falls today and progressively getting weaker. Once again the patient states that he did not hit his head did not pass out lose consciousness remembers entire event. Patient overall has no other real complaints. Patient will have a workup performed here on the differential diagnose includes but not limited to electrolyte abnormality, UTI, pneumonia. Once workup is obtained reviewed he will be reevaluated. Patient CBC reviewed and showed no evidence leukocytosis white blood count normal at 7.4, hemoglobin 12.6, platelet count normal at 296. Patient sodium normal at 134, potassium was noted be normal at 4, creatinine normal at 1.27. Patient's AST and ALT were normal at 20 and 11 respectively, troponin normal at 14 with a delta troponin obtained normal at 16, EKG reviewed and showed sinus rhythm with a rate of 63 beats per minutes. Patient's urinalysis showed negative nitrites negative leukocyte esterase there is 0-5 white cells with 2+ bacteria noted he is not having urinary symptoms this was sent for culture. Patient's chest x-ray reviewed and showed left basilar atelectasis hiatal hernia. Patient states that he is unsure as when his last tetanus shot was therefore this was updated here today. Patient was ambulated here in the emergency department did this well without any difficulty or complications. Did discuss something with the patient and family members at bedside and they would like to take the patient home he is feeling much better than when he first arrived. Patient states that he has an appointment tomorrow for preoperative clearance he was encouraged to continue to keep this appointment and go to this. He is encouraged return with worsening symptoms or concerns. He is advised to follow-up with his primary care physici an on the urine culture results. All question concerns answered he is discharged home in stable condition. Lab Data Labs: Laboratory Results - last 24 hr 11/06/23 11/06/23 11/06/23 18:09 18:42 20:09 WBC 7.4 RBC 4.70 Hgb 12.6 L Hct 40.6 MCV 86.4 MCH 26.8 L MCHC 31.0 L RDW Std Deviation 45.8 H RDW Coeff of Asya 14.5 Plt Count 296 MPV 9.3 Immature Gran % (Auto) 0.300 Neut % (Auto) 59.0 Lymph % (Auto) 23.7 [place] % (Auto) 15.0 H Eos % (Auto) 1.0 Baso % (Auto) 1.0 Absolute Neuts (auto) 4.4 Absolute Lymphs (auto) 1.74 Nucleated RBC % 0 Sodium 134 L Potassium 4.0 Chloride 104 Carbon Dioxide 22.0 Anion Gap 8 BUN 19 H Creatinine 1.27 Estim Creat Clear Calc 47.34 Est GFR (MDRD) Af Amer 70 Est GFR (MDRD) Non-Af 58 L BUN/Creatinine Ratio 15.0 Glucose 119 H Calcium 8.9 Total Bilirubin 0.90 AST 20 ALT 11 L Alkaline Phosphatase 116 Troponin I High Sens 14 16 Total Protein 7.4 Albumin 3.2 Globulin 4.2 Albumin/Globulin Ratio 0.8 L Urine Color Straw Urine Clarity Clear Urine pH 6.0 Ur Specific [place] 1.015 Urine Protein 15 H Urine Glucose (UA) 1000 H Urine Ketones Negative Urine Occult Blood 10 H Urine Nitrite Negative Urine Bilirubin Negative Urine Urobilinogen 1 H Ur Leukocyte Esterase Negative Urine RBC 0 SEEN Urine WBC 0-5 SEEN Ur Squamous Epith Cells 0 SEEN Urine Bacteria 2+ Urine Mucus 0 SEEN Radiography Diagnostic Testing: Clinical Impression(s) from Imaging Studies Chest X-Ray 11/06/23 18:13 IMPRESSION: Left basilar atelectasis. Hiatal hernia. Electronically Signed: Gonsalo Lopez DO at 18:42 EDT Reading Location ID and State: [address] [place] [address] Tel [phone], Service support , Discharge Plan Triage Chief Complaint: Fall ED Provider: Chace Burgess Dx/Rx/DC Orders Clinical Impression: Generalized weakness Prescriptions: No Action amiodarone 200 mg tablet 200 mg PO QDAY apixaban 2.5 mg tablet 2.5 mg PO BID aspirin [Adult Low Dose Aspirin] 81 mg tablet,delayed release (DR/EC) 81 mg PO QDAY atorvastatin 40 mg tablet 40 mg PO QDAY clopidogrel [Plavix] 75 mg tablet 75 mg PO QDAY Jardiance 10 mg tablet 10 mg PO QAM metoprolol tartrate 25 mg tablet 25 mg PO BID mirtazapine 7.5 mg tablet 7.5 mg PO QHS lorazepam 0.5 mg tablet 0.5 mg PO TID PRN levothyroxine 75 mcg tablet 75 mcg PO DAILY Primary Care Provider: Gene Swain Referrals: Gene Swain MD [Primary Care Provider] - Activity Restrictions/Additional Instructions: Follow-up with your primary care physician outpatient setting. Return with worsening symptoms other concerns. Follow-up on urine culture results with your primary care physician. Follow-up at your appointment scheduled tomorrow. Print Language: Bruneian Disposition Disposition: Home, Self Care
[2023-11-06 19:14] LABS: Bacteria 2+ /hpf (None Seen); White Blood Cells 0-5 SEEN /hpf (0-5)
[2023-11-06 20:30] LABS: Troponin-I HS 16 pg/mL (3.0-78.0)
[2023-11-06] MEDS: Diphth,Pertuss(Acell),Tet Vac 0.5 ML Vial IM (20:33)
[2023-11-06 20:48] VITALS: BP 167/73; PULSE 62; RESP 20; TEMP 36.6; O2SAT 96
== END 2023-11-06 20:51 | disposition home or self-care (01) ==
PROVIDERS: Emergency Provider Emergency Medicine; PCP Family Medicine; Visit Provider Emergency Medicine
DX: R53.1 Weakness (principal); I48.91 Unspecified atrial fibrillation; E11.22 Type 2 diabetes mellitus with diabetic chronic kidney disease; K44.9 Diaphragmatic hernia without obstruction or gangrene; E78.5 Hyperlipidemia, unspecified; I25.10 Atherosclerotic heart disease of native coronary artery without angina pectoris; N18.9 Chronic kidney disease, unspecified; I12.9 Hypertensive chronic kidney disease with stage 1 through stage 4 chronic kidney disease, or unspecified chronic kidney disease; E03.9 Hypothyroidism, unspecified; Z79.01 Long term (current) use of anticoagulants; R29.6 Repeated falls; Z91.81 History of falling; Z98.890 Other specified postprocedural states; S51.812A Laceration without foreign body of left forearm, initial encounter; J98.11 Atelectasis; Z23 Encounter for immunization; W19.XXXA Unspecified fall, initial encounter
CPT/HCPCS: 71046; 80053; 81001; 84484; 85025; 87077; 87086; 87088; 87186; 87631; 90715; 93005; 96360; 99282; J7030; A4216

== ENCOUNTER 2023-11-27 10:13 | Emergency (ER) | payer MEDICARE, SELFPAY ==
[2023-11-27] VITALS (12 sets, daily range): BP systolic 105–176; BP diastolic 81–96; PULSE 73–115; RESP 12–22; TEMP 35.5–36.8; O2SAT 93–97; BMI 29.1
--- NOTE | 2023-11-27 10:18 | EX.ED.DYSGE1 ---
HPI History of Present Illness Chief Complaint: Abd Pain [facility] Medical History History of hypertension NSTEMI, initial episode of care Abnormal ECG History of diabetes mellitus Acute chest pain Actinic keratosis Hyperlipidemia Hypothyroidism Diabetes Hypertension Home Medications ?Medication ?Instructions ?Recorded ?Last Taken ?Type amiodarone 200 mg tablet 200 mg PO QDAY 10/20/23 Unknown History apixaban 2.5 mg tablet 2.5 mg PO BID 10/20/23 Unknown History aspirin 81 mg tablet,delayed 81 mg PO QDAY 10/20/23 Unknown History release (Adult Low Dose Aspirin) atorvastatin 40 mg tablet 40 mg PO QDAY 10/20/23 Unknown History clopidogrel 75 mg tablet (Plavix) 75 mg PO QDAY 10/20/23 Unknown History empagliflozin 10 mg tablet 10 mg PO QAM 10/20/23 Unknown History (Jardiance) lorazepam 0.5 mg tablet 0.5 mg PO TID PRN 10/20/23 Unknown History metoprolol tartrate 25 mg tablet 25 mg PO BID 10/20/23 Unknown History mirtazapine 7.5 mg tablet 7.5 mg PO QHS 10/20/23 Unknown History amlodipine 10 mg tablet 10 mg PO DAILY 11/27/23 Unknown History furosemide 20 mg tablet 20 mg PO DAILY 11/27/23 Unknown History levothyroxine 100 mcg tablet 100 mcg PO DAILY 11/27/23 Unknown History lisinopril 40 mg tablet 40 mg PO DAILY 11/27/23 Unknown History sertraline 50 mg tablet 50 mg PO DAILY 11/27/23 Unknown History Allergy/AdvReac Type Severity Reaction Status Date / Time codeine Allergy Mild Hives Verified 11/27/23 10:18 Surgical History History of amputation of finger History of tonsillectomy and adenoidectomy Social History household members: none Smoking Status: Never smoker substance use type: does not use EXAM Physical Exam Const Vital Signs: 11/27/23 10:15 11/27/23 10:17 11/27/23 11:17 Temperature 98 F 98 F 98.3 F Temperature Source Oral Oral Oral Pulse Rate 115 H 88 79 Respiratory Rate 22 H 18 20 H Blood Pressure 105/81 H 128/87 H 141/85 H Blood Pressure Mean 89 100 103 Pulse Ox 96 97 96 Oxygen Delivery Method Room Air Nasal Cannula Nasal Cannula Oxygen Flow Rate (L/min) 2 11/27/23 12:00 Temperature 98.1 F Temperature Source Oral Pulse Rate 73 Respiratory Rate 22 H Blood Pressure 169/91 H Blood Pressure Mean 117 Pulse Ox 97 Oxygen Delivery Method Nasal Cannula Oxygen Flow Rate (L/min) [facility] Narrative Medical decision making narrative: HISTORY OF PRESENT ILLNESS: 83-year-old male presents with abdominal pain and vomiting. Notes he has been removed 7 days ago. He further states he has 20/10 left lower quadrant abdominal pain that began today. Notes nausea and vomiting as well. REVIEW OF SYSTEMS: Pertinent positives: Abdominal pain, nausea vomiting Pertinent negatives: Fever, chest pain PHYSICAL EXAM: Nursing triage notes reviewed, Vital signs reviewed Constitutional: please see mdm HENT: MMM Eyes: Pupils equal round and reactive to light, Extraocular muscles intact Neck: No stridor, no JVD, full neck ROM Lungs: Clear to auscultation, No wheezing or rales. No increased work of breathing, no conversational dyspnea, no accessory muscle use, no nasal flaring. No respiratory distress noted Heart: Regular rate and rhythm, No murmurs, No rubs and No gallops, 2+ distal pulses (radial, femoral, posterior tibial) in all extremities Abdomen: Soft, there is no tenderness, rigidity, rebound or guarding, no obvious peritoneal signs, no palpable pulsatile abdominal masses, no auscultated abdominal bruit : No CVAT Extremities: No edema Neuro: No focal neurological deficits, cranial nerves II through XII intact, 5/5 strength in all extremities. Intact sensation to light touch in all extremities, 2+ reflexes bilateral patella tendons. Normal gait. No ataxia. Skin: No rash or lesions noted MEDICAL DECISION MAKING: Chief Complaint: Abdominal pain, nausea vomiting External records reviewed: Reviewed prior imaging studies: Reviewed CT scan from August 2023 Factors affecting care: Renal mass, status post nephrectomy and splenectomy Social determinants of health: none History obtained from others: none Consults: none initially. [facility] Narrative: Patient was initially tachycardic rate 115 otherwise tachypneic at a rate of 22, afebrile nontoxic-appearing. Abdominal exam was overall benign with no obvious peritoneal signs did have clean dry intact surgical scars. Did have left lower quadrant TTP Initially treat the patient's pain with IV morphine and then 3 additional doses of IV Dilaudid I considered the following differential diagnosis: Intra-abdominal abscess, hematoma, infection, solid organ injury I obtained a broad lab and imaging workup to further elucidate etiology patient complaint. He has been patient 1 L normal saline for rehydration, Zofran for nausea and morphine for pain control. Obtain lactate, blood cultures given SIRS criteria Initially resuscitate the patient with 30 cc/kg bolus. Gave empiric broad-spectrum antibiotics (Zosyn) ALL IMAGES (IF OBTAINED) HAVE BEEN PERSONALLY REVIEWED AND INTERPRETED BY MYSELF. CBC with leukocytosis suggestive of systemic inflammation, improved anemia from 8-9.5, no thrombocytopenia BMP without evidence of significant electrolyte abnormalities, no anion gap, no acute kidney injury. Initial lactate elevated to 4.1 consistent endorgan perfusion, repeat lactate after 1 L normal saline showed resolution Lipase elevated consistent with pancreatic inflammation LFTs show no evidence of hepatobiliary pathology. CT scan of the abdomen pelvis shows evidence of likely postop hematoma with active extravasation Patient was on Eliquis, he had evidence of active extravasation however he is not hypotensive, he is not tachycardic after fluids, his hemoglobin improved. Notification for Eliquis reversal will hold. Discussed the case with [facility] physicians including urology Dr. Willis, general surgery Dr. Tafoya, and the hospitalist Dr. Harmon. Dr. Tafoya reviewed the patient's images and did not think he had a perforated viscus. He thought the patient was suffering for a postop seroma and recommended admission to urology service or medicine. Discussed with Dr. Willis recommend admission to medicine. Spoke to Dr. Harmon who accepted the patient in transfer. Patient is awaiting transfer. The patient and/or family, caregivers express understanding. The patient and/or family, caregivers agrees with the plan. Shared decision making: I will have a discussion with the patient and or visitors regarding risk/benefits of further testing or admission. They will be made aware of of the risk/benefits inherent in this decision they will be given the opportunity to voice understanding. Total critical care time today provided was at least 60 minutes. This excludes separately billable procedures. Critical care time (if documented) is secondary to the patient having high probability of clinically significant/life threatening deterioration in the patient's condition which required my urgent intervention. Impression: 1. Acute abdominal pain 2. Leukocytosis 3. Postop hematoma 4. Acute pancreatitis Dispo: Transfer to [facility] This note was generated with [employer] dictation software. It may contain incorrect words, spelling, and punctuation that were not noted in review of the chart prior to signing. Lab Data Labs: Laboratory Results - last 24 hr 11/27/23 11/27/23 10:30 12:51 WBC 17.1 H RBC 3.61 L Hgb 9.5 L Hct 30.7 L MCV 85.0 MCH 26.3 L MCHC 30.9 L RDW Std Deviation 49.0 H RDW Coeff of Asya 15.8 H Plt Count 1162 H* MPV 8.8 Differential Comment Diff Path Review May foll Sodium 137 Potassium 4.6 Chloride 102 Carbon Dioxide 24.0 Anion Gap 11 BUN 18 Creatinine 1.16 Estim Creat Clear Calc 50.99 Est GFR (MDRD) Af Amer 78 Est GFR (MDRD) Non-Af 64 BUN/Creatinine Ratio 15.5 Glucose 269 H Lactic Acid 4.1 H* 1.7 Calcium 9.1 Total Bilirubin 0.50 AST 30 ALT 16 Alkaline Phosphatase 139 H Total Protein 6.8 Albumin 2.3 L Globulin 4.5 H Albumin/Globulin Ratio 0.5 L Lipase 119 H Radiography Diagnostic Testing: Clinical Impression(s) from Imaging Studies Abdomen/Pelvis CT 11/27/23 10:27 IMPRESSION: 10.4 x 7.3 x 12.8 cm complex fluid collection within the left upper quadrant concerning for a seroma and/or hematoma with a active bleed, cannot exclude an associated infectious process. Intraperitoneal free air may be partially postsurgical however cannot exclude bowel perforation, potentially from the gastric body. Status post splenectomy and left nephrectomy. Atherosclerosis. Bilateral pleural effusions associated with lower lobe dependent consolidation. N.B. : The above Results were Read Back by Giovanna Reilly MD to Darian Sadler DO, and understanding confirmed on 11/27/2023 12:48:34 (ET). Electronically Signed: Giovanna Reilly MD at 12:50 EDT , ADDENDUM: 11/27/23 1257 IMPRESSION: 10.4 x 7.3 x 12.8 cm complex fluid collection within the left upper quadrant concerning for a seroma and/or hematoma with a active bleed, cannot exclude an associated infectious process. Intraperitoneal free air may be partially postsurgical however cannot exclude bowel perforation, potentially from the gastric body. Status post splenectomy and left nephrectomy. Atherosclerosis. Bilateral pleural effusions associated with lower lobe dependent consolidation. N.B. : The above Results were Read Back by Giovanna Reilly MD to Darian Sadler DO, and understanding confirmed on 11/27/2023 12:48:34 (ET). Electronically Signed: Giovanna Reilly MD at 12:50 EDT , Discharge Plan Triage Chief Complaint: Abd Pain ED Provider: Darian Sadler Dx/Rx/DC Orders Prescriptions: No Action amiodarone 200 mg tablet 200 mg PO QDAY apixaban 2.5 mg tablet 2.5 mg PO BID aspirin [Adult Low Dose Aspirin] 81 mg tablet,delayed release (DR/EC) 81 mg PO QDAY atorvastatin 40 mg tablet 40 mg PO QDAY clopidogrel [Plavix] 75 mg tablet 75 mg PO QDAY Jardiance 10 mg tablet 10 mg PO QAM metoprolol tartrate 25 mg tablet 25 mg PO BID mirtazapine 7.5 mg tablet 7.5 mg PO QHS lorazepam 0.5 mg tablet 0.5 mg PO TID PRN levothyroxine 100 mcg tablet 100 mcg PO DAILY amlodipine 10 mg tablet 10 mg PO DAILY furosemide 20 mg tablet 20 mg PO DAILY lisinopril 40 mg tablet 40 mg PO DAILY sertraline 50 mg tablet 50 mg PO DAILY Primary Care Provider: Gene Swain Referrals: Gene Swain MD [Primary Care Provider] - Print Language: Somali
[2023-11-27] MEDS: Morphine 4 MG/ML Syringe IV (10:27)
[2023-11-27] MEDS: Ondansetron 4 MG/2 ML Vial IV ×2 (10:27→17:10)
--- NOTE | 2023-11-27 10:27 | CT_ITS ---
STUDY: CT ABDOMEN AND PELVIS WITH CONTRAST - URINARY TRACT REASON FOR EXAM: Male, 83 years old. Left lower quadrant abdominal pain. 7 days status post spleen removal. RADIATION DOSAGE (If Supplied By Facility): CTDIvol = ( 18.27 ) mGy, DLP = ( 1051.50 ) mGycm TECHNIQUE: IV 100mL Isovue-370 was administered. Transaxial images were obtained from the dome of the diaphragm to the symphysis pubis subsequent to the intravenous administration 100 cc of Isovue-370. Multiplanar coronal and sagittal images were reformatted. The protocol utilizes one or more of the following dose reduction techniques: automated exposure control, adjustment of mA and/or kV according to patient size,and/or use of iterative reconstruction technique. COMPARISON: No relevant prior comparison study available FINDINGS: There are bilateral pleural effusions associated with lower lobe dependent consolidation. The visualized portions of the heart are within normal limits. There are sternotomy wires in place. Within the right hepatic lobe there is a 1.9 cm low-attenuation focus with possible peripheral enhancement. There is a low-attenuation focus adjacent to the gallbladder fossa may reflect focal fat. There are dependent round mildly hyperechoic foci within the gallbladder. There is evidence of prior splenectomy. Within the left upper quadrant there is a 10.4 x 7.3 x 12.8 cm complex fluid collection that contains a high attenuation focus in appearance concerning for a blush of contrast. A fluid collection abuts the greater curvature of the stomach, tail the pancreas, left adrenal gland and ascending colon extends into the left retroperitoneum. There are intraperitoneal foci of free air within the upper abdomen. Normal pancreas. The right adrenal gland within normal limits. There is a small to moderate size hiatal hernia. There is a questionable defect within the greater curvature of the gastric body. Normal small intestine. There are multiple colonic diverticula consistent with diverticulosis. There is non-visualization of the appendix. There is diffuse atherosclerotic calcification of the abdominal aorta, without a demonstrated aneurysm. No retroperitoneal adenopathy. Normal right kidney. There is nonvisualization of the left kidney. Normal urinary bladder. There are few foci of free air within the left inguinal region. Normal osseous structures. CT/Abdomen/Pelvis W IV Cont ONLY IMPRESSION: 10.4 x 7.3 x 12.8 cm complex fluid collection within the left upper quadrant concerning for a seroma and/or hematoma with a active bleed, cannot exclude an associated infectious process. Intraperitoneal free air may be partially postsurgical however cannot exclude bowel perforation, potentially from the gastric body. Status post splenectomy and left nephrectomy. Atherosclerosis. Bilateral pleural effusions associated with lower lobe dependent consolidation. N.B. : The above Results were Read Back by Giovanna Reilly MD to Darian Sadler DO, and understanding confirmed on 11/27/2023 12:48:34 (ET). Electronically Signed: Giovanna Reilly MD at 12:50 EDT ,
[2023-11-27] MEDS: 0.9% Normal Saline (1000mL) 1,000 ML 1000 ML IV (10:28)
[2023-11-27 11:04] LABS: Hematocrit 30.7 % (40-54); Hemoglobin 9.5 g/dL (13.0-16.5); Mean Corp Hgb Conc 30.9 g/dL (32-36); Mean Corpuscular Hgb 26.3 pg (27.0-32.0); Mean Platelet Vol. 8.8 fl (6.2-12.0); POSITIVE COUNT YES; RBC Distribution Width CV 15.8 % (11.6-14.6); Red Blood Count 3.61 M/mm3 (4.6-6.2); White Blood Count 17.1 K/mm3 (4.4-11.0)
[2023-11-27 11:07] LABS: Platelet Count 1162 K/mm3 (150-450); Scan Indicated on CBC? Y/N YES- FLAGS NOTED
[2023-11-27] MEDS: HYDROmorphone 0.5 MG/0.5 ML SYRINGE IV ×4 (11:19→17:10)
[2023-11-27 11:29] LABS: ALB/GLOB Ratio 0.5 RATIO (0.9-2.4); AST(SGOT) 30 U/L (15-37); Alanine Aminotransfer ALT/SGPT 16 U/L (16-61); Albumin, Serum 2.3 g/dL (3.2-5.0); Alkaline Phosphatase 139 U/L (45-117); Anion Gap 11 (5-15); BUN 18 mg/dL (7-18); BUN/Creat Ratio 15.5 RATIO (10-20); Calcium,Total 9.1 mg/dL (8.5-10.1); Chloride 102 mmol/L (98-107); Creatinine, Serum 1.16 mg/dL (0.70-1.30); EST Glomerular Filtration Rate 64 mL/min (>60); Est Glom Filt Rate - Afr Amer 78 mL/min (>60); Estimated Creatinine Clearance 50.99 ml/min; Globulin 4.5 g/dL (2.2-4.2); Glucose 269 mg/dL (74-106); Lipase 119 U/L (13-75); Potassium 4.6 mmol/L (3.5-5.1); Protein, Total 6.8 g/dL (6.4-8.2); Sodium Level 137 mmol/L (136-145)
[2023-11-27 11:31] LABS: Lactic Acid 4.1 mmol/L (0.4-1.9)
[2023-11-27] MEDS: 0.9% Normal Saline (1000mL) 1,000 ML 999 ML IV (13:14)
[2023-11-27] MEDS: Piperacil/Tazobactam 3.375 GM in 0.9% Normal Saline (50mL MB+) 50 ML IV (13:21)
[2023-11-27 13:32] LABS: Lactic Acid 1.7 mmol/L (0.4-1.9)
[2023-11-27] MEDS: 0.9% Normal Saline (500mL Bag) 500 ML 999 ML IV (13:37)
[2023-11-27 14:35] LABS: Reflex Lactate? Y
[2023-11-27 15:40] LABS: Lactic Acid 1.8 mmol/L (0.4-1.9)
--- NOTE | 2023-11-27 15:40 | NURSING ---
[facility] ROOM 5698 NURSE TO NURSE [id number] JOSE
[2023-11-27 15:59] LABS: Mucous, Urine 0 SEEN /hpf (<or=2+); Red Blood Cells-Urine 0 SEEN /hpf (0-5)
--- NOTE | 2023-11-27 16:04 | NURSING ---
CALLED [facility], ETA IS 30 MIN
[2023-11-27 16:07] LABS: Color, Urine Yellow (Yellow); Glucose, Dipstick 1000 mg/dl (Normal); Ketone-Dipstick Negative (Negative); Leukocyte Esterase-Dipstick Negative /ul (Negative); Nitrite-Dipstick Negative (Negative); Occult Blood-Urine Negative /ul (Negative); Protein-Dipstick 15 mg/dl (Negative); Urine Bilirubin Dipstick Negative (Negative); Urine Clarity Clear (Clear); Urine Urobilinogen Normal (Normal)
[2023-11-27 16:50] LABS: Bacteria RARE /hpf (None Seen); Squamous Epithelial Cells - UA 0-5 SEEN /hpf (0-5); White Blood Cells 0-5 SEEN /hpf (0-5); Yeast-Urine RARE /hpf (None Seen)
[2023-11-28 14:39] LABS: Pathologist Review Reviewed
== END 2023-11-27 17:13 | disposition short-term general hospital (02) ==
PROVIDERS: Emergency Provider Emergency Medicine; PCP Family Medicine; Visit Provider Emergency Medicine
DX: K91.873 Postprocedural seroma of a digestive system organ or structure following other procedure (principal); E11.9 Type 2 diabetes mellitus without complications; K85.90 Acute pancreatitis without necrosis or infection, unspecified; I10 Essential (primary) hypertension; Z90.5 Acquired absence of kidney; Z90.81 Acquired absence of spleen; Z79.02 Long term (current) use of antithrombotics/antiplatelets; Z79.82 Long term (current) use of aspirin; Z79.84 Long term (current) use of oral hypoglycemic drugs; Z79.899 Other long term (current) drug therapy
CPT/HCPCS: 74177; 80053; 81001; 83605; 83690; 85027; 87040; 96361; 96365; 96366; 96375; 96376; 99285; J7030; J7040; Q9967; A4216; J2405